=== PATIENT | male | born 1975 | race Caucasian/White ===

== ENCOUNTER 2019-11-18 09:46 | Inpatient (IN) | payer OTHER ==
[~2019-11-18 09:46] MED LIST: HEPARIN SODIUM 1,000 UN/ML (10ML VL) ONE; LIDOCAINE 1% INJ 10MG/ML (20 ML MDV) ONE
--- NOTE | 2019-11-18 10:05 | ED ---
Abdominal Pain HPI - General Chief Complaint: Abdominal Pain Stated Complaint: weakness/abd pain/bloating Time Seen by Provider: 11/18/19 09:53 Source: patient, RN notes reviewed Mode of arrival: wheelchair Limitations: no limitations - History of Present Illness Initial Comments: This a 44-year-old male presents emergency Department with complaints of abdominal pain, jaundice, weakness. Patient states that he noticed that he started having abdominal pain and bloating the last couple weeks noticed that he started having yellowing of his skin. He does admit that he was drinking at least a pint to 1/5 of alcohol daily for last several years. Patient states he has not had a drink of alcohol in 3 weeks. Patient states that he did not go through any withdrawal symptoms. Patient states that he came today because he was feeling worse. He denies any acetaminophen use. He states that he was told he may have Gilbert's disease based on his "gallbladder tests". Patient states he never had any evaluation for. He states that his liver enzymes were elevated at that time. Patient states she has generalized abdominal pain, distention and bloating. Patient denies any chest pain or shortness of breath. Patient denies any fevers or chills patient offers no other associated complaints. - Related Data Allergies Allergy/AdvReac Type Severity Reaction Status Date / Time No Known Allergies Allergy Verified 11/18/19 09:47 Review of Systems ROS Statement: Those systems with pertinent positive or pertinent negative responses have been documented in the HPI. ROS Other: All systems not noted in ROS Statement are negative. Past Medical History Past Medical History: Diabetes Mellitus Additional Past Medical History / Comment(s): possible Gilbert syndrome History of Any Multi-Drug Resistant Organisms: None Reported Past Surgical History: Adenoidectomy Past Psychological History: No Psychological Hx Reported Smoking Status: Never smoker Past Alcohol Use History: Abuse, Heavy Past Drug Use History: None Reported General Exam Limitations: no limitations General appearance: alert, in no apparent distress Head exam: Present: atraumatic, normocephalic, normal inspection Eye exam: Present: PERRL, EOMI, scleral icterus. Absent: normal appearance, conjunctival injection, periorbital swelling ENT exam: Present: mucous membranes moist. Absent: normal oropharynx (Icterus submandibular region) Neck exam: Present: normal inspection, full ROM. Absent: tenderness, meningismus, lymphadenopathy Respiratory exam: Present: normal lung sounds bilaterally. Absent: respiratory distress, wheezes, rales, rhonchi, stridor Cardiovascular Exam: Present: regular rate, normal rhythm, normal heart sounds. Absent: systolic murmur, diastolic murmur, rubs, gallop, clicks GI/Abdominal exam: Present: distended, tenderness, normal bowel sounds. Absent: soft, guarding, rebound, rigid Neurological exam: Present: alert, oriented X3, CN II-XII intact Skin exam: Present: warm, dry, intact, other (Icterus). Absent: normal color, rash Course Vital Signs 11/18/19 11/18/19 09:48 10:17 Temperature 97.9 F Pulse Rate 75 75 Respiratory 18 18 Rate Blood Pressure 105/69 122/68 O2 Sat by Pulse 100 100 Oximetry Medical Decision Making - Medical Decision Making 44-year-old male presented for abdominal pain, jaundice. Patient has metabolic encephalopathy, acute renal and liver failure most likely related to alcohol abuse, cirrhosis. Patient will be admitted for further evaluation by GI. Patient was given lactulose for his elevated ammonia, potassium replacement was ordered. - Lab Data Result diagrams: 11/18/19 10:04 11/18/19 10:04 Lab Results 11/18/19 11/18/19 11/18/19 Range/Units 10:04 10:04 10:04 WBC 29.9 H (3.8-10.6) k/uL RBC 3.64 L (4.30-5.90) m/uL Hgb 13.2 (13.0-17.5) gm/dL Hct 37.2 L (39.0-53.0) % MCV 102.1 H (80.0-100.0) fL MCH 36.3 H (25.0-35.0) pg MCHC 35.5 (31.0-37.0) g/dL RDW 14.5 (11.5-15.5) % Plt Count 174 (150-450) k/uL Neutrophils % 90 % Lymphocytes % 4 % Monocytes % 4 % Eosinophils % 1 % Basophils % 0 % Neutrophils # 27.0 H (1.3-7.7) k/uL Lymphocytes # 1.2 (1.0-4.8) k/uL Monocytes # 1.1 H (0-1.0) k/uL Eosinophils # 0.3 (0-0.7) k/uL Basophils # 0.1 (0-0.2) k/uL Macrocytosis Slight Sodium 125 L (137-145) mmol/L Potassium 2.8 L (3.5-5.1) mmol/L Chloride 89 L (98-107) mmol/L Carbon Dioxide 19 L (22-30) mmol/L Anion Gap 17 mmol/L BUN 82 H (9-20) mg/dL Creatinine 4.24 H (0.66-1.25) mg/dL Est GFR (CKD-EPI)AfAm 19 (>60 ml/min/1.73 sqM) Est GFR (CKD-EPI)NonAf 16 (>60 ml/min/1.73 sqM) Glucose 133 H (74-99) mg/dL Plasma Lactic Acid Joselo 1.9 (0.7-2.0) mmol/L Calcium 8.7 (8.4-10.2) mg/dL Total Bilirubin 40.3 H* (0.2-1.3) mg/dL GGT 226 H (15-73) U/L AST 304 H (17-59) U/L ALT 202 H (4-49) U/L Alkaline Phosphatase 249 H (38-126) U/L Ammonia 79 H (<30) umol/L Lactate Dehydrogenase 742 H (313-618) U/L Total Protein 7.4 (6.3-8.2) g/dL Albumin 3.0 L (3.5-5.0) g/dL Amylase 71 (30-110) U/L Lipase 481 H (23-300) U/L Serum Alcohol <10 mg/dL Critical Care Time Critical Care Time: Yes Total Critical Care Time: 35 Critical Care Time: Total 35 minutes of critical care time used initially evaluated the patient, reviewed past medical history, according of labs including CBC, CMP, hepatitis panel, GGT, LDH, pneumonia. Patient's found to be and metabolic suppository, acute liver and renal failure. Patient will be admitted for further evaluation by GI, treatment at this time. Case discussed with admitting physician. Disposition Clinical Impression: Acute liver failure, Acute renal failure, Hepatic encephalopathy, Hypokalemia, Jaundice Disposition: ADMITTED IP TO THIS [facility] Condition: Serious Referrals: None,Stated [Primary Care Provider] - 1-2 days Time of Disposition: 10:57
[2019-11-18 10:22] LABS: Basophils # (A) 0.1 k/uL (0-0.2); Basophils % (A) 0 %; Eosinophils # (A) 0.3 k/uL (0-0.7); Eosinophils % (A) 1 %; HCT 37.2 % (39.0-53.0); HGB 13.2 gm/dL (13.0-17.5); Lymphocytes # (A) 1.2 k/uL (1.0-4.8); Lymphocytes % (A) 4 %; MCH 36.3 pg (25.0-35.0); MCHC 35.5 g/dL (31.0-37.0); MCV 102.1 fL (80.0-100.0); Macrocytosis Slight; Mean Platelet Volume 9.2; Monocytes # (A) 1.1 k/uL (0-1.0); Monocytes % (A) 4 %; Neutrophils % (A) 90 %; Platelet Count 174 k/uL (150-450); RBC 3.64 m/uL (4.30-5.90); RDW 14.5 % (11.5-15.5); WBC 29.9 k/uL (3.8-10.6)
[2019-11-18 10:23] LABS: Lactic Acid, Venous 1.9 mmol/L (0.7-2.0)
[2019-11-18 10:35] LABS: ALT 202 U/L (4-49); AST 304 U/L (17-59); African American GFR (CKD) 19 (>60 ml/min/1.73 sqM); Alcohol <10 mg/dL; Alkaline Phosphatase 249 U/L (38-126); Amylase 71 U/L (30-110); Anion Gap 17 mmol/L; Blood Urea Nitrogen 82 mg/dL (9-20); Calcium 8.7 mg/dL (8.4-10.2); Carbon Dioxide 19 mmol/L (22-30); Chloride 89 mmol/L (98-107); GGT 226 U/L (15-73); Glucose 133 mg/dL (74-99); LDH 742 U/L (313-618); Non-African American GFR(CKD) 16 (>60 ml/min/1.73 sqM); Potassium 2.8 mmol/L (3.5-5.1); Sodium 125 mmol/L (137-145); Total Protein 7.4 g/dL (6.3-8.2)
[2019-11-18 10:43] LABS: Total Bilirubin 40.3 mg/dL (0.2-1.3)
[2019-11-18] MEDS ORDERED: LACTULOSE 20 GM/30 ML CUP PO ONE (10:51)
[2019-11-18] MEDS ORDERED: POTASSIUM CHLORIDE ER 20 MEQ TAB.ER PO STA (10:51)
[2019-11-18 11:10] LABS: INR 2.1 (<1.2); Partial Thromboplastin Time 38.2 sec (22.0-30.0); Prothrombin Time 20.6 sec (9.0-12.0)
[2019-11-18 11:10] LABS: Hepatitis A Antibody IgM NEGATIVE
--- NOTE | 2019-11-18 11:27 | US ---
EXAMINATION TYPE: US abdomen limited DATE OF EXAM: 11/18/2019 COMPARISON: NONE CLINICAL HISTORY: pain, liver failure. Jaundice, ETOH EXAM MEASUREMENTS: Liver Length: 21.3 cm Gallbladder Wall: 0.6 cm CBD: 0.5 cm Right Kidney: 13.5 x 6.1 x 6.8 cm Pancreas: Obscured by bowel gas Liver: Coarse, heterogeneous echotexture. Nodular contour, enlarged Gallbladder: Wall thickened with pericholecystic fluid, tiny echogenic foci visualized, sludge visua lized Evidence for sonographic Obrien's sign: No CBD: wnl as visualized, distal portion obscured by bowel gas Right Kidney: No hydronephrosis or masses seen The pancreas is not visualized. The liver is enlarged and has a somewhat nodular contour. There is no biliary dilatation. There is evidence of ascites. The gallbladder is free of stones the gallbladder wall is thickened measuring 6 mm. The distal common hepatic duct measures 5 mm. The right kidney is unremarkable. IMPRESSION: 1. Hepatomegaly and nodularity to the liver may reflect early cirrhosis. 2. Thickening of the gallbladder wall is not a reliable sign in the face of ascites. Please correlate clinically to exclude acalculous cholecystitis. 3. Ascites.
[2019-11-18] MEDS ORDERED: IBUPROFEN 400 MG TAB PO PRN (12:49)
[2019-11-18] MEDS ORDERED: PHYTONADIONE 10 MG in SODIUM CHLORIDE 0.9% 50 ML IVPB STA (14:50)
[2019-11-18] MEDS ORDERED: POTASSIUM CHLORIDE 10 MEQ in WATER FOR INJECTION 1 100ML.BAG IVPB STA (14:52)
[2019-11-18] MEDS ORDERED: NALOXONE 0.4 MG/ML 1 ML VIAL IV PRN (14:53)
--- NOTE | 2019-11-18 14:53 | P.HPIM ---
History of Present Illness H&P Date: 11/18/19 Chief Complaint: abdominal pain 44-year-old male presents emergency Department with complaints of jaundice, weakness. In addition he has been having generalized abdominal pain, distention and bloating. Symptoms ongoing for the past few weeks. He does admit that he was drinking at least a pint to 1/5 of alcohol daily for last 2 years. Last drink was 3 weeks ago. Patient states that he did not go through any withdrawal symptoms. No acetaminophen use. He states that years ago he was told he may have Gilbert's disease based on his "gallbladder tests". He states that his liver enzymes were elevated at that time. Patient denies any chest pain or shortness of breath. Patient denies any fevers or chills patient offers no other associated complaints. Laboratory evaluation in the emergency department revealed WBC count 30,000, INR was 2.1, sodium 125, potassium 2.8, bicarbonate 19, BUN 82, creatinine 4.2, AST 304, AST 202, ammonia 79. Patient was admitted for further evaluation by GI and further diagnostic studies. Review of Systems Complete review of system performed, pertinent positives per HPI, otherwise negative Past Medical History Past Medical History: Diabetes Mellitus Additional Past Medical History / Comment(s): possible Gilbert syndrome History of Any Multi-Drug Resistant Organisms: None Reported Past Surgical History: Adenoidectomy Past Psychological History: No Psychological Hx Reported Smoking Status: Never smoker Past Alcohol Use History: Abuse, Heavy Past Drug Use History: None Reported - Past Family History Mother Family Medical History: Cancer Father Family Medical History: Diabetes Mellitus Medications and Allergies Home Medications Medication Instructions Recorded Confirmed Type Cetirizine HCl [Zyrtec] 10 mg PO DAILY 11/18/19 11/18/19 History Ibuprofen [Advil] 400 mg PO Q6H PRN 11/18/19 11/18/19 History metFORMIN HCL [Glucophage] 500 mg PO BID 11/18/19 11/18/19 History Allergies Allergy/AdvReac Type Severity Reaction Status Date / Time No Known Allergies Allergy Verified 11/18/19 10:59 Physical Exam Vitals: Vital Signs Temp Pulse Resp BP Pulse Ox 11/18/19 11:22 84 18 117/70 100 11/18/19 10:17 75 18 122/68 100 11/18/19 09:48 97.9 F 75 18 105/69 100 Intake and Output 05/08/20 05/09/20 05/09/20 22:59 06:59 14:59 Other: Weight 81.647 kg Constitutional: No acute distress, conversant, pleasant Eyes: icteric sclerae, moist conjunctiva, no lid-lag, PERRLA, ENMT: Oropharynx clear, no erythema, exudates Neck: Supple, FROM, no masses, or JVD, No carotid bruits, No thyromegaly Lungs: Clear to auscultation, Clear to percussion, Normal respiratory effort, no accessory muscle use Cardiovascular: Heart regular in rate and rhythm, No murmurs, gallops, or rubs, No peripheral edema Abdominal: Distended, Soft, Nontender, no guarding, rebound or rigidity, Normoactive bowel sounds, mild hepatomegaly, No splenomegaly, No palpable mass Skin: Yellow skin. Normal temperature, tone, texture, turgor, no induration, No subcutaneous nodules, No rash, lesions, No ulcers Extremities: No digital cyanosis, No clubbing, Pedal pulses intact and symmetrical, Radial pulses intact and symmetrical, No calf tenderness Psychiatric: Alert and oriented to person, place and time, appropriate affect, intact judgement Neuro: Muscles Strength 5/5 in all 4 extremities, Sensation to light touch g rossly present throughout, Cranial nerves II-XII grossly intact, no focal sensory deficits Results CBC & Chem 7: 11/18/19 10:04 11/18/19 10:04 Labs: Abnormal Lab Results - Last 24 Hours (Table) 11/18/19 11/18/19 11/18/19 Range/Units 10:04 10:04 10:04 WBC 29.9 H (3.8-10.6) k/uL RBC 3.64 L (4.30-5.90) m/uL Hct 37.2 L (39.0-53.0) % MCV 102.1 H (80.0-100.0) fL MCH 36.3 H (25.0-35.0) pg Neutrophils # 27.0 H (1.3-7.7) k/uL Monocytes # 1.1 H (0-1.0) k/uL PT 20.6 H (9.0-12.0) sec INR 2.1 H (<1.2) APTT 38.2 H (22.0-30.0) sec Sodium 125 L (137-145) mmol/L Potassium 2.8 L (3.5-5.1) mmol/L Chloride 89 L (98-107) mmol/L Carbon Dioxide 19 L (22-30) mmol/L BUN 82 H (9-20) mg/dL Creatinine 4.24 H (0.66-1.25) mg/dL Glucose 133 H (74-99) mg/dL Total Bilirubin 40.3 H* (0.2-1.3) mg/dL GGT 226 H (15-73) U/L AST 304 H (17-59) U/L ALT 202 H (4-49) U/L Alkaline Phosphatase 249 H (38-126) U/L Ammonia (<30) umol/L Lactate Dehydrogenase 742 H (313-618) U/L Albumin 3.0 L (3.5-5.0) g/dL Lipase 481 H (23-300) U/L 11/18/19 Range/Units 10:04 WBC (3.8-10.6) k/uL RBC (4.30-5.90) m/uL Hct (39.0-53.0) % MCV (80.0-100.0) fL MCH (25.0-35.0) pg Neutrophils # (1.3-7.7) k/uL Monocytes # (0-1.0) k/uL PT (9.0-12.0) sec INR (<1.2) APTT (22.0-30.0) sec Sodium (137-145) mmol/L Potassium (3.5-5.1) mmol/L Chloride (98-107) mmol/L Carbon Dioxide (22-30) mmol/L BUN (9-20) mg/dL Creatinine (0.66-1.25) mg/dL Glucose (74-99) mg/dL Total Bilirubin (0.2-1.3) mg/dL GGT (15-73) U/L AST (17-59) U/L ALT (4-49) U/L Alkaline Phosphatase (38-126) U/L Ammonia 79 H (<30) umol/L Lactate Dehydrogenase (313-618) U/L Albumin (3.5-5.0) g/dL Lipase (23-300) U/L Assessment and Plan Plan: Jaundice Elevated LFTs Cirrhosis likely secondary to alcohol abuse EtOH abuse Chronic back pain Hypokalemia Hyponatremia Metabolic acidosis Acute renal failure Patient likely dehydrated, started IV fluids Replace K Mg sulfate IV Check plasma and urine osmolalities Check urine sodium Replace potassium Check electrolytes and creatinine tonight Discussed with GI--no steroids It is not safe to give patient anything for pain at this point
[2019-11-18] MEDS: LACTULOSE 20 GM/30 ML CUP PO SCH ×2 (15:59→22:35)
[2019-11-18] MEDS: SODIUM CHLORIDE 0.9% 1,000 ML IV SCH (16:09)
[2019-11-18] MEDS: MAGNESIUM SULFATE-D5W PMX 1 GM in DEXTROSE/WATER 1 100ML.BAG IVPB SCH ×2 (16:48→17:56)
[2019-11-18 17:17] LABS: Glucose,Whole Blood 127 mg/dL (75-99)
[2019-11-18 17:46] LABS: Amorphous Sediment,Urine Rare /hpf; Appearance,Urine Cloudy (Clear); Bacteria,Urine Occasional /hpf; Bilirubin,Urine 4+ (Negative); Blood,Urine Negative (Negative); Color,Urine Dark Brown; Glucose,Urine (UA) Negative (Negative); Ketones,Urine Negative (Negative); Leukocyte Esterase,Urine Negative (Negative); Mucus,Urine Rare /hpf; Nitrite,Urine Negative (Negative); PH, Urine 5.5 (5.0-8.0); Protein,Urine Trace (Negative); RBC,Urine <1 /hpf (0-5); Specific Gravity,Urine 1.013 (1.001-1.035); Squamous Epithelial Cell,Urine 1 /hpf (0-4); WBC,Urine 4 /hpf (0-5)
[2019-11-18 18:29] LABS: Hepatitis B Core IgM Non-Reactive (Non-Reactive); Hepatitis B Surface Antigen Non-Reactive (Non-Reactive); Hepatitis C IgG Antibody Non-Reactive (Non-Reactive)
[2019-11-18 20:04] LABS: HCT 33.1 % (39.0-53.0); HGB 11.8 gm/dL (13.0-17.5); MCH 36.7 pg (25.0-35.0); MCHC 35.6 g/dL (31.0-37.0); Macrocytosis Slight; Mean Platelet Volume 9.3; Platelet Count 168 k/uL (150-450); RBC 3.21 m/uL (4.30-5.90); RDW 14.5 % (11.5-15.5)
[2019-11-18 20:07] LABS: Glucose,Whole Blood 135 mg/dL (75-99)
[2019-11-18 20:30] LABS: Albumin 2.9 g/dL (3.5-5.0); Calcium 8.7 mg/dL (8.4-10.2); Phosphorus 5.5 mg/dL (2.5-4.5)
[2019-11-18 20:48] LABS: Total Bilirubin 41.2 mg/dL (0.2-1.3); Total Protein 6.9 g/dL (6.3-8.2)
[2019-11-18] MEDS: POTASSIUM CHLORIDE ER 20 MEQ TAB.ER PO SCH ×2 (21:28→22:35)
[2019-11-19] MEDS: SODIUM CHLORIDE 0.9% 1,000 ML IV SCH ×2 (06:12→17:09)
[2019-11-19 06:32] LABS: Albumin 2.5 g/dL (3.5-5.0); Calcium 8.1 mg/dL (8.4-10.2); Magnesium 2.7 mg/dL (1.6-2.3); Phosphorus 5.2 mg/dL (2.5-4.5); Total Protein 6.2 g/dL (6.3-8.2)
[2019-11-19 06:34] LABS: Basophils # (A) 0.1 k/uL (0-0.2); Basophils % (A) 0 %; Eosinophils # (A) 0.1 k/uL (0-0.7); Eosinophils % (A) 1 %; HCT 31.9 % (39.0-53.0); Lymphocytes % (A) 4 %; MCH 35.9 pg (25.0-35.0); MCHC 34.5 g/dL (31.0-37.0); Macrocytosis Slight; Mean Platelet Volume 10.4; Monocytes # (A) 0.7 k/uL (0-1.0); Monocytes % (A) 3 %; Neutrophils # (A) 21.9 k/uL (1.3-7.7); Neutrophils % (A) 91 %; Platelet Count 113 k/uL (150-450); RBC 3.07 m/uL (4.30-5.90)
[2019-11-19 06:41] LABS: Total Bilirubin 39.4 mg/dL (0.2-1.3)
[2019-11-19 06:54] LABS: Glucose,Whole Blood 118 mg/dL (75-99)
[2019-11-19] MEDS: LACTULOSE 20 GM/30 ML CUP PO SCH ×3 (08:42→22:24)
[2019-11-19] MEDS ORDERED: POTASSIUM CHLORIDE ER 20 MEQ TAB.ER PO STA (10:17)
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
--- NOTE | 2019-11-19 11:15 | US ---
EXAMINATION TYPE: US kidneys/renal and bladder DATE OF EXAM: 11/19/2019 COMPARISON: Previous abdominal ultrasound dated 11/18/2019. CLINICAL HISTORY: pete. EXAM MEASUREMENTS: Right Kidney: 11.7 x 5.9 x 5.9 cm Left Kidney: 11.8 x 6.2 x 5.0 cm Right Kidney: No hydronephrosis or masses seen Left Kidney: No hydronephrosis or masses seen Bladder: Not distended, patient has dowd IMPRESSION: NO EVIDENCE FOR HYDRONEPHROSIS AT THIS TIME.
[2019-11-19 11:32] LABS: Glucose,Whole Blood 110 mg/dL (75-99)
[2019-11-19 11:50] LABS: Prothrombin Time 19.7 sec (9.0-12.0)
[2019-11-19] MEDS ORDERED: PHYTONADIONE 10 MG in SODIUM CHLORIDE 0.9% 50 ML IVPB STA (13:02)
--- NOTE | 2019-11-19 17:05 | P.PN ---
Subjective Progress Note Date: 11/19/19 Principal diagnosis: Jaundice Patient is feeling okay. Still the same. His blood pressure was noted to be low 70/40. He is asymptomatic, no dizziness. He has some nausea but no vomiting. He is still feeling weak though. According to nursing staff is not making any urine. No fevers or chills noted. Objective - Vital Signs Vital signs: Vital Signs Temp 97.5 F L 11/19/19 13:00 Pulse 84 11/19/19 15:52 Resp 16 11/19/19 15:52 BP 75/42 11/19/19 13:00 Pulse Ox 98 11/19/19 13:00 Intake & Output 11/18/19 11/19/19 11/19/19 18:59 06:59 18:59 Intake Total 1300 590 540 Output Total 300 10 10 Balance 1000 580 530 Weight 81.647 kg Intake: Intake, IV Titration 400 Amount Magnesium Sulfate-D5w Pmx 100 1 gm In Dextrose/Water 1 100ml.bag @ 100 mls/hr IVPB Q1H JAILENE Rx#: [id number] Phytonadione 10 mg In 50 Sodium Chloride 0.9% 50 ml @ 100 mls/hr IVPB ONCE STA Rx#:[id number] Potassium Chloride 10 meq 100 In Water For Injection 1 100ml.bag @ 100 mls/hr IVPB ONCE STA Rx#: [id number] Sodium Chloride 0.9% 1, 150 000 ml @ 100 mls/hr IV . Q10H JAILENE Rx#:[id number] Oral 900 590 540 Output: Urine 300 10 10 Other: Voiding Method Toilet Toilet Indwelling Catheter Urinal Urinal # Voids 0 0 # Bowel Movements 1 2 - Exam Constitutional: No acute distress, conversant, pleasant Eyes: icteric sclerae, moist conjunctiva, no lid-lag, PERRLA, ENMT: Oropharynx clear, no erythema, exudates Neck: Supple, FROM, no masses, or JVD, No carotid bruits, No thyromegaly Lungs: Clear to auscultation, Clear to percussion, Normal respiratory effort, no accessory muscle use Cardiovascular: Heart regular in rate and rhythm, No murmurs, gallops, or rubs, No peripheral edema Abdominal: Distended, Soft, Nontender, no guarding, rebound or rigidity, Normoactive bowel sounds, mild hepatomegaly, No splenomegaly, No palpable mass Skin: Yellow skin. Normal temperature, tone, texture, turgor, no induration, No subcutaneous nodules, No rash, lesions, No ulcers Extremities: No digital cyanosis, No clubbing, Pedal pulses intact and symmetrical, Radial pulses intact and symmetrical, No calf tenderness Psychiatric: Alert and oriented to person, place and time, appropriate affect, intact judgement Neuro: Muscles Strength 5/5 in all 4 extremities, Sensation to light touch ponce ssly present throughout, Cranial nerves II-XII grossly intact, no focal sensory deficits - Labs CBC & Chem 7: 11/19/19 05:36 11/19/19 05:36 Labs: Abnormal Lab Results - Last 24 Hours (Table) 11/18/19 11/18/19 11/18/19 Range/Units 17:15 17:20 19:47 WBC (3.8-10.6) k/uL RBC (4.30-5.90) m/uL Hgb (13.0-17.5) gm/dL Hct (39.0-53.0) % MCV (80.0-100.0) fL MCH (25.0-35.0) pg Plt Count (150-450) k/uL Neutrophils # (1.3-7.7) k/uL PT (9.0-12.0) sec INR (<1.2) Sodium 125 L (137-145) mmol/L Potassium 3.0 L (3.5-5.1) mmol/L Chloride 88 L (98-107) mmol/L Carbon Dioxide 20 L (22-30) mmol/L BUN 87 H (9-20) mg/dL Creatinine 4.51 H (0.66-1.25) mg/dL Glucose 123 H (74-99) mg/dL POC Glucose (mg/dL) 127 H (75-99) mg/dL Calcium (8.4-10.2) mg/dL Phosphorus 5.5 H (2.5-4.5) mg/dL Magnesium 3.0 H (1.6-2.3) mg/dL Total Bilirubin 41.2 H* (0.2-1.3) mg/dL AST 292 H (17-59) U/L ALT 179 H (4-49) U/L Alkaline Phosphatase 234 H (38-126) U/L Total Protein (6.3-8.2) g/dL Albumin 2.9 L (3.5-5.0) g/dL Urine Protein Trace H (Negative) Urine Bilirubin 4+ H (Negative) Amorphous Sediment Rare H (None) /hpf Urine Bacteria Occasional H (None) /hpf Urine Mucus Rare H (None) /hpf 11/18/19 11/18/19 11/19/19 Range/Units 19:47 20:06 05:36 WBC 31.0 H 24.0 H (3.8-10.6) k/uL RBC 3.21 L 3.07 L (4.30-5.90) m/uL Hgb 11.8 L 11.0 L (13.0-17.5) gm/dL Hct 33.1 L 31.9 L (39.0-53.0) % MCV 103.0 H 104.0 H (80.0-100.0) fL MCH 36.7 H 35.9 H (25.0-35.0) pg Plt Count 113 L (150-450) k/uL Neutrophils # 21.9 H (1.3-7.7) k/uL PT (9.0-12.0) sec INR (<1.2) Sodium (137-145) mmol/L Potassium (3.5-5.1) mmol/L Chloride (98-107) mmol/L Carbon Dioxide (22-30) mmol/L BUN (9-20) mg/dL Creatinine (0.66-1.25) mg/dL Glucose (74-99) mg/dL POC Glucose (mg/dL) 135 H (75-99) mg/dL Calcium (8.4-10.2) mg/dL Phosphorus (2.5-4.5) mg/dL Magnesium (1.6-2.3) mg/dL Total Bilirubin (0.2-1.3) mg/dL AST (17-59) U/L ALT (4-49) U/L Alkaline Phosphatase (38-126) U/L Total Protein (6.3-8.2) g/dL Albumin (3.5-5.0) g/dL Urine Protein (Negative) Urine Bilirubin (Negative) Amorphous Sediment (None) /hpf Urine Bacteria (None) /hpf Urine Mucus (None) /hpf 11/19/19 11/19/19 11/19/19 Range/Units 05:36 06:52 10:44 WBC (3.8-10.6) k/uL RBC (4.30-5.90) m/uL Hgb (13.0-17.5) gm/dL Hct (39.0-53.0) % MCV (80.0-100.0) fL MCH (25.0-35.0) pg Plt Count (150-450) k/uL Neutrophils # (1.3-7.7) k/uL PT 19.7 H (9.0-12.0) sec INR 2.0 H (<1.2) Sodium 124 L (137-145) mmol/L Potassium 3.0 L (3.5-5.1) mmol/L Chloride 89 L (98-107) mmol/L Carbon Dioxide 21 L (22-30) mmol/L BUN 91 H (9-20) mg/dL Creatinine 5.03 H (0.66-1.25) mg/dL Glucose 123 H (74-99) mg/dL POC Glucose (mg/dL) 118 H (75-99) mg/dL Calcium 8.1 L (8.4-10.2) mg/dL Phosphorus 5.2 H (2.5-4.5) mg/dL Magnesium 2.7 H (1.6-2.3) mg/dL Total Bilirubin 39.4 H* (0.2-1.3) mg/dL AST 248 H (17-59) U/L ALT 173 H (4-49) U/L Alkaline Phosphatase 189 H (38-126) U/L Total Protein 6.2 L (6.3-8.2) g/dL Albumin 2.5 L (3.5-5.0) g/dL Urine Protein (Negative) Urine Bilirubin (Negative) Amorphous Sediment (None) /hpf Urine Bacteria (None) /hpf Urine Mucus (None) /hpf 11/19/19 Range/Units 11:31 WBC (3.8-10.6) k/uL RBC (4.30-5.90) m/uL Hgb (13.0-17.5) gm/dL Hct (39.0-53.0) % MCV (80.0-100.0) fL MCH (25.0-35.0) pg Plt Count (150-450) k/uL Neutrophils # (1.3-7.7) k/uL PT (9.0-12.0) sec INR (<1.2) Sodium (137-145) mmol/L Potassium (3.5-5.1) mmol/L Chloride (98-107) mmol/L Carbon Dioxide (22-30) mmol/L BUN (9-20) mg/dL Creatinine (0.66-1.25) mg/dL Glucose (74-99) mg/dL POC Glucose (mg/dL) 110 H (75-99) mg/dL Calcium (8.4-10.2) mg/dL Phosphorus (2.5-4.5) mg/dL Magnesium (1.6-2.3) mg/dL Total Bilirubin (0.2-1.3) mg/dL AST (17-59) U/L ALT (4-49) U/L Alkaline Phosphatase (38-126) U/L Total Protein (6.3-8.2) g/dL Albumin (3.5-5.0) g/dL Urine Protein (Negative) Urine Bilirubin (Negative) Amorphous Sediment (None) /hpf Urine Bacteria (None) /hpf Urine Mucus (None) /hpf Assessment and Plan Plan: Jaundice Elevated LFTs Cirrhosis likely secondary to alcohol abuse EtOH abuse Hypotension Chronic back pain Hypokalemia Hyponatremia Metabolic acidosis Acute renal failure, oliguric Hepatorenal syndrome Continue IV fluids Symptomatic treatment with Zofran Started on midodrine for low blood pressure Replace K Urine sodium low consistent with HRS Recheck kristian in am Discussed with GI--no steroids
[2019-11-19] MEDS: MIDODRINE 5 MG TAB PO SCH (17:09)
[2019-11-19 17:19] LABS: Glucose,Whole Blood 146 mg/dL (75-99)
--- NOTE | 2019-11-19 17:46 | P.CONS ---
History of Present Illness - Reason for Consult Consult date: 11/18/19 Elevated liver enzymes, alcoholic hepatitis Requesting physician: Darcy Moyer - Chief Complaint Jaundice, weakness - History of Present Illness 44-year-old male with a medical history significant for alcohol abuse who presented to the hospital for a constellation of symptoms including jaundice, weakness and some lower abdominal pain. The patient reports abdominal pain in association with swelling and distention. This is been going on for the past 4 days. He reports the pain as dull in nature. He did have some nausea and vomiting approximately 5 days ago however this resolved. The patient denies any change in bowel habits and is passing flatus. The patient reports noting yellowness of the skin over the past 2 weeks. The patient reports he feels it i s actually getting better. The patient has been drinking heavy amounts of alcohol daily for the past 2 years and only stopped drinking 3 weeks ago. Prior to these 2 years he reports only occasionally drinking. He also notes darkening of his urine and decreased urine output. He denies any pruritus. The patient has a questionable history of Gilbert's syndrome in the past. Patient's laboratory evaluation on presentation significant for a WBC 29.9, hemoglobin 13.2, platelet count 174,000, total bilirubin 40.3, alkaline phosphatase 249, AST 304 and ALT 202 with an INR of 2.1. Ultrasound showed hepatomegaly and nodularity of the liver. Review of Systems REVIEW OF SYSTEMS: CONSTITUTIONAL: Denies any fevers, chills, weight change or fatigue. CARDIOVASCULAR: Denies any chest pain, palpitations high or low blood pressures, blood pressures have been low while in the hospital. RESPIRATORY: Denies any shortness of breath, hemoptysis or cough. GENITOURINARY: No dysuria or hematuria, however her urine has been dark with decreased output. MUSCULOSKELETAL: No weakness reported. SKIN: Denies any new rashes or lesions, or pallor but significant jaundice. PSYCHIATRIC: Denies any depression or anxiety, history of alcohol abuse. NEUROLOGY: Denies headache, denies any new focal deficits. EARS/NOSE/THROAT: No recent hearing change, congestion, nasal discharge or sore throat. EYES: No pain in eyes, discharge or change in vision, but yellowing of eyes noted. GASTROINTESTINAL: As per HPI. Past Medical History Past Medical History: Diabetes Mellitus Additional Past Medical History / Comment(s): possible Gilbert syndrome History of Any Multi-Drug Resistant Organisms: None Reported Past Surgical History: Adenoidectomy Past Psychological History: No Psychological Hx Reported Smoking Status: Never smoker Past Alcohol Use History: Abuse, Heavy Past Drug Use History: None Reported - Past Family History Mother Family Medical History: Cancer Father Family Medical History: Diabetes Mellitus Medications and Allergies Home Medications Medication Instructions Recorded Confirmed Type Cetirizine HCl [Zyrtec] 10 mg PO DAILY 11/18/19 11/18/19 History Ibuprofen [Advil] 400 mg PO Q6H PRN 11/18/19 11/18/19 History metFORMIN HCL [Glucophage] 500 mg PO BID 11/18/19 11/18/19 History Allergies Allergy/AdvReac Type Severity Reaction Status Date / Time No Known Allergies Allergy Verified 11/18/19 10:59 Physical Exam Vitals: Vital Signs Temp Pulse Pulse Resp BP BP Pulse Ox 11/18/19 13:21 84 17 11/18/19 13:12 98.4 F 84 17 119/77 99 11/18/19 13:11 80 16 121/78 99 11/18/19 12:02 98.4 F 84 17 119/77 99 11/18/19 11:22 84 18 117/70 100 11/18/19 10:17 75 18 122/68 100 11/18/19 09:48 97.9 F 75 18 105/69 100 Intake and Output 11/17/19 11/18/19 11/18/19 22:59 06:59 14:59 Intake Total 120 Balance 120 Intake: Oral 120 Other: Voiding Method Toilet Urinal Weight 81.647 kg On physical examination, patient appears comfortable in no apparent distress. HEAD: Normocephalic, atraumatic. EYES: Scleral icterus. No conjunctival injection. MOUTH: No lesions, tongue midline. NECK: Trachea midline, no gross abnormalities. CHEST: Clear to auscultation with no wheezing or rhonchi appreciated. HEART: Regular rate and rhythm. ABDOMEN: Soft, distended with positive fluid wave. Bowel sounds are positive. No organomegaly. No guarding or rigidity. EXTREMITIES: No pedal edema. SKIN: No rashes, significant jaundice. NEUROLOGIC: Alert and oriented x3, no asterixis noted. No focal deficits. Results CBC & Chem 7: 11/19/19 05:36 11/19/19 05:36 Labs: Abnormal Lab Results - Last 24 Hours (Table) 11/18/19 11/18/19 11/18/19 Range/Units 10:04 10:04 10:04 WBC 29.9 H (3.8-10.6) k/uL RBC 3.64 L (4.30-5.90) m/uL Hct 37.2 L (39.0-53.0) % MCV 102.1 H (80.0-100.0) fL MCH 36.3 H (25.0-35.0) pg Neutrophils # 27.0 H (1.3-7.7) k/uL Monocytes # 1.1 H (0-1.0) k/uL PT 20.6 H (9.0-12.0) sec INR 2.1 H (<1.2) APTT 38.2 H (22.0-30.0) sec Sodium 125 L (137-145) mmol/L Potassium 2.8 L (3.5-5.1) mmol/L Chloride 89 L (98-107) mmol/L Carbon Dioxide 19 L (22-30) mmol/L BUN 82 H (9-20) mg/dL Creatinine 4.24 H (0.66-1.25) mg/dL Glucose 133 H (74-99) mg/dL Total Bilirubin 40.3 H* (0.2-1.3) mg/dL GGT 226 H (15-73) U/L AST 304 H (17-59) U/L ALT 202 H (4-49) U/L Alkaline Phosphatase 249 H (38-126) U/L Ammonia (<30) umol/L Lactate Dehydrogenase 742 H (313-618) U/L Albumin 3.0 L (3.5-5.0) g/dL Lipase 481 H (23-300) U/L 11/18/19 Range/Units 10:04 WBC (3.8-10.6) k/uL RBC (4.30-5.90) m/uL Hct (39.0-53.0) % MCV (80.0-100.0) fL MCH (25.0-35.0) pg Neutrophils # (1.3-7.7) k/uL Monocytes # (0-1.0) k/uL PT (9.0-12.0) sec INR (<1.2) APTT (22.0-30.0) sec Sodium (137-145) mmol/L Potassium (3.5-5.1) mmol/L Chloride (98-107) mmol/L Carbon Dioxide (22-30) mmol/L BUN (9-20) mg/dL Creatinine (0.66-1.25) mg/dL Glucose (74-99) mg/dL Total Bilirubin (0.2-1.3) mg/dL GGT (15-73) U/L AST (17-59) U/L ALT (4-49) U/L Alkaline Phosphatase (38-126) U/L Ammonia 79 H (<30) umol/L Lactate Dehydrogenase (313-618) U/L Albumin (3.5-5.0) g/dL Lipase (23-300) U/L US - abdomen: report reviewed ( Ultrasound showed hepatomegaly and nodularity of the liver.) Assessment and Plan (1) Alcoholic hepatitis with ascites Narrative/Plan: 44-year-old male with significant alcohol use over the past 2 years consisting of large amounts of daily liquor presenting to 2 weakness, abdominal discomfort and jaundice. Patient found to have markedly elevated liver enzymes on presentation with a total bilirubin 40.3, alkaline phosphatase 249, AST 304 and ALT 202 with INR elevated at 2.1 yesterday and 2 today after being given vitamin K. Ultrasound showed a cirrhotic appearing liver with hepatomegaly and nodularity as well as a ascites. Patient has a questionable history of Gilbert syndrome in the past, however current presentation is consistent with severe acute alcoholic hepatitis. Current Visit: Yes Status: Acute Code(s): K70.11 - ALCOHOLIC HEPATITIS WITH ASCITES SNOMED Code(s): 8222460725558971 (2) Acute renal failure Current Visit: Yes Status: Acute Code(s): N17.9 - ACUTE KIDNEY FAILURE, UNSPECIFIED SNOMED Code(s): 92947017 (3) Jaundice Current Visit: Yes Status: Acute Code(s): R17 - UNSPECIFIED JAUNDICE SNOMED Code(s): 77548891 Plan: Supportive care Continue to monitor CBC, CMP, INR Continue to monitor for signs of encephalopathy Continue lactulose 3 times a day Nephrology consultation seen the patient, appreciate the recommendations Solu-Medrol 40 mg daily Patient not a candidate for transfer to a tertiary center for liver transplant evaluation of active alcohol use Alcohol abstinence Monitor for signs or symptoms of alcohol withdrawal Midodrine, albumin and octreotide added for suspected hepatorenal syndrome Thank you for allowing us to participate in the care of the patient we will continue to follow
--- NOTE | 2019-11-19 17:49 | P.PN ---
Subjective Progress Note Date: 11/19/19 Principal diagnosis: Acute alcoholic hepatitis, elevated liver enzymes Patient seen lying in bed today in stable condition. No acute complaints. He has been urinating less. Objective - Vital Signs Vital signs: Vital Signs Temp 97.5 F L 11/19/19 13:00 Pulse 84 11/19/19 15:52 Resp 16 11/19/19 15:52 BP 75/42 11/19/19 13:00 Pulse Ox 98 11/19/19 13:00 Intake & Output 11/18/19 11/19/19 11/19/19 18:59 06:59 18:59 Intake Total 1300 590 540 Output Total 300 10 10 Balance 1000 580 530 Weight 81.647 kg Intake: Intake, IV Titration 400 Amount Magnesium Sulfate-D5w Pmx 100 1 gm In Dextrose/Water 1 100ml.bag @ 100 mls/hr IVPB Q1H JAILENE Rx#: [id number] Phytonadione 10 mg In 50 Sodium Chloride 0.9% 50 ml @ 100 mls/hr IVPB ONCE STA Rx#:[id number] Potassium Chloride 10 meq 100 In Water For Injection 1 100ml.bag @ 100 mls/hr IVPB ONCE STA Rx#: [id number] Sodium Chloride 0.9% 1, 150 000 ml @ 100 mls/hr IV . Q10H JAILENE Rx#:[id number] Oral 900 590 540 Output: Urine 300 10 10 Other: Voiding Method Toilet Toilet Indwelling Catheter Urinal Urinal # Voids 0 0 # Bowel Movements 1 2 - Exam On physical examination, patient appears comfortable in no apparent distress. HEAD: Normocephalic, atraumatic. EYES: Scleral icterus. No conjunctival injection. MOUTH: No lesions, tongue midline. NECK: Trachea midline, no gross abnormalities. ABDOMEN: Soft, distended with positive fluid wave. Bowel sounds are positive. No organomegaly. No guarding or rigidity. EXTREMITIES: No pedal edema. SKIN: No rashes, jaundice. NEUROLOGIC: Alert and oriented x3, no asterixis noted. No focal deficits. - Labs CBC & Chem 7: 11/19/19 05:36 11/19/19 05:36 Labs: Abnormal Lab Results - Last 24 Hours (Table) 11/18/19 11/18/19 11/18/19 Range/Units 17:20 19:47 19:47 WBC 31.0 H (3.8-10.6) k/uL RBC 3.21 L (4.30-5.90) m/uL Hgb 11.8 L (13.0-17.5) gm/dL Hct 33.1 L (39.0-53.0) % MCV 103.0 H (80.0-100.0) fL MCH 36.7 H (25.0-35.0) pg Plt Count (150-450) k/uL Neutrophils # (1.3-7.7) k/uL PT (9.0-12.0) sec INR (<1.2) Sodium 125 L (137-145) mmol/L Potassium 3.0 L (3.5-5.1) mmol/L Chloride 88 L (98-107) mmol/L Carbon Dioxide 20 L (22-30) mmol/L BUN 87 H (9-20) mg/dL Creatinine 4.51 H (0.66-1.25) mg/dL Glucose 123 H (74-99) mg/dL POC Glucose (mg/dL) (75-99) mg/dL Calcium (8.4-10.2) mg/dL Phosphorus 5.5 H (2.5-4.5) mg/dL Magnesium 3.0 H (1.6-2.3) mg/dL Total Bilirubin 41.2 H* (0.2-1.3) mg/dL AST 292 H (17-59) U/L ALT 179 H (4-49) U/L Alkaline Phosphatase 234 H (38-126) U/L Total Protein (6.3-8.2) g/dL Albumin 2.9 L (3.5-5.0) g/dL Urine Protein Trace H (Negative) Urine Bilirubin 4+ H (Negative) Amorphous Sediment Rare H (None) /hpf Urine Bacteria Occasional H (None) /hpf Urine Mucus Rare H (None) /hpf 11/18/19 11/19/19 11/19/19 Range/Units 20:06 05:36 05:36 WBC 24.0 H (3.8-10.6) k/uL RBC 3.07 L (4.30-5.90) m/uL Hgb 11.0 L (13.0-17.5) gm/dL Hct 31.9 L (39.0-53.0) % MCV 104.0 H (80.0-100.0) fL MCH 35.9 H (25.0-35.0) pg Plt Count 113 L (150-450) k/uL Neutrophils # 21.9 H (1.3-7.7) k/uL PT (9.0-12.0) sec INR (<1.2) Sodium 124 L (137-145) mmol/L Potassium 3.0 L (3.5-5.1) mmol/L Chloride 89 L (98-107) mmol/L Carbon Dioxide 21 L (22-30) mmol/L BUN 91 H (9-20) mg/dL Creatinine 5.03 H (0.66-1.25) mg/dL Glucose 123 H (74-99) mg/dL POC Glucose (mg/dL) 135 H (75-99) mg/dL Calcium 8.1 L (8.4-10.2) mg/dL Phosphorus 5.2 H (2.5-4.5) mg/dL Magnesium 2.7 H (1.6-2.3) mg/dL Total Bilirubin 39.4 H* (0.2-1.3) mg/dL AST 248 H (17-59) U/L ALT 173 H (4-49) U/L Alkaline Phosphatase 189 H (38-126) U/L Total Protein 6.2 L (6.3-8.2) g/dL Albumin 2.5 L (3.5-5.0) g/dL Urine Protein (Negative) Urine Bilirubin (Negative) Amorphous Sediment (None) /hpf Urine Bacteria (None) /hpf Urine Mucus (None) /hpf 11/19/19 11/19/19 11/19/19 Range/Units 06:52 10:44 11:31 WBC (3.8-10.6) k/uL RBC (4.30-5.90) m/uL Hgb (13.0-17.5) gm/dL Hct (39.0-53.0) % MCV (80.0-100.0) fL MCH (25.0-35.0) pg Plt Count (150-450) k/uL Neutrophils # (1.3-7.7) k/uL PT 19.7 H (9.0-12.0) sec INR 2.0 H (<1.2) Sodium (137-145) mmol/L Potassium (3.5-5.1) mmol/L Chloride (98-107) mmol/L Carbon Dioxide (22-30) mmol/L BUN (9-20) mg/dL Creatinine (0.66-1.25) mg/dL Glucose (74-99) mg/dL POC Glucose (mg/dL) 118 H 110 H (75-99) mg/dL Calcium (8.4-10.2) mg/dL Phosphorus (2.5-4.5) mg/dL Magnesium (1.6-2.3) mg/dL Total Bilirubin (0.2-1.3) mg/dL AST (17-59) U/L ALT (4-49) U/L Alkaline Phosphatase (38-126) U/L Total Protein (6.3-8.2) g/dL Albumin (3.5-5.0) g/dL Urine Protein (Negative) Urine Bilirubin (Negative) Amorphous Sediment (None) /hpf Urine Bacteria (None) /hpf Urine Mucus (None) /hpf 11/19/19 Range/Units 17:15 WBC (3.8-10.6) k/uL RBC (4.30-5.90) m/uL Hgb (13.0-17.5) gm/dL Hct (39.0-53.0) % MCV (80.0-100.0) fL MCH (25.0-35.0) pg Plt Count (150-450) k/uL Neutrophils # (1.3-7.7) k/uL PT (9.0-12.0) sec INR (<1.2) Sodium (137-145) mmol/L Potassium (3.5-5.1) mmol/L Chloride (98-107) mmol/L Carbon Dioxide (22-30) mmol/L BUN (9-20) mg/dL Creatinine (0.66-1.25) mg/dL Glucose (74-99) mg/dL POC Glucose (mg/dL) 146 H (75-99) mg/dL Calcium (8.4-10.2) mg/dL Phosphorus (2.5-4.5) mg/dL Magnesium (1.6-2.3) mg/dL Total Bilirubin (0.2-1.3) mg/dL AST (17-59) U/L ALT (4-49) U/L Alkaline Phosphatase (38-126) U/L Total Protein (6.3-8.2) g/dL Albumin (3.5-5.0) g/dL Urine Protein (Negative) Urine Bilirubin (Negative) Amorphous Sediment (None) /hpf Urine Bacteria (None) /hpf Urine Mucus (None) /hpf Assessment and Plan (1) Alcoholic hepatitis with ascites Narrative/Plan: 44-year-old male with significant alcohol use over the past 2 years consisting of large amounts of daily liquor presenting to 2 weakness, abdominal discomfort and jaundice. Patient found to have markedly elevated liver enzymes on presentation with a total bilirubin 40.3, alkaline phosphatase 249, AST 304 and ALT 202 with INR elevated at 2.1 yesterday and 2 today after being given vitamin K. Ultrasound showed a cirrhotic appearing liver with hepatomegaly and nodularity as well as a ascites. Patient has a questionable history of Gilbert syndrome in the past, however current presentation is consistent with severe acute alcoholic hepatitis. Current Visit: Yes Status: Acute Code(s): K70.11 - ALCOHOLIC HEPATITIS WITH ASCITES SNOMED Code(s): 7545565608749885 (2) Acute renal failure Current Visit: Yes Status: Acute Code(s): N17.9 - ACUTE KIDNEY FAILURE, UNSPECIFIED SNOMED Code(s): 03251743 (3) Jaundice Current Visit: Yes Status: Acute Code(s): R17 - UNSPECIFIED JAUNDICE SNOMED Code(s): 79124468 Plan: Supportive care Continue to monitor CBC, CMP, INR Continue to monitor for signs of encephalopathy Continue lactulose 3 times a day Nephrology consultation seen the patient, appreciate the recommendations Solu-Medrol 40 mg daily Patient not a candidate for transfer to a tertiary center for liver transplant evaluation of active alcohol use Alcohol abstinence Monitor for signs or symptoms of alcohol withdrawal Midodrine, albumin and octreotide added for suspected hepatorenal syndrome Thank you for allowing us to participate in the care of the patient we will continue to follow
[2019-11-19] MEDS: methylPREDNISolone SOD SUCCI 40 MG/ML 1 ML VIAL IV SCH (17:58)
[2019-11-19] MEDS: OCTREOTIDE 100 MCG/ML INJ SQ SCH (18:01)
[2019-11-19] MEDS: ALBUMIN HUMAN 25% 50 ML in EMPTY BAG 1 BAG IVPB SCH ×4 (18:06→21:34)
[2019-11-19 20:03] LABS: Glucose,Whole Blood 131 mg/dL (75-99)
[2019-11-20] MEDS: OCTREOTIDE 100 MCG/ML INJ SQ SCH (00:55)
[2019-11-20 01:18] LABS: Glucose,Whole Blood 188 mg/dL (75-99)
[2019-11-20] MEDS ORDERED: PHYTONADIONE 10 MG in SODIUM CHLORIDE 0.9% 50 ML IVPB STA (01:25)
[2019-11-20] MEDS ORDERED: OCTREOTIDE 50 MCG in SODIUM CHLORIDE 0.9% 100 ML IVPB ONE (01:31)
[2019-11-20 01:36] LABS: HCT 26.3 % (39.0-53.0); HGB 9.1 gm/dL (13.0-17.5); MCH 37.2 pg (25.0-35.0); MCHC 34.6 g/dL (31.0-37.0); MCV 107.5 fL (80.0-100.0); Macrocytosis Moderate; Mean Platelet Volume 10.5; Platelet Count 107 k/uL (150-450); RBC 2.45 m/uL (4.30-5.90); RDW 14.3 % (11.5-15.5); WBC 27.3 k/uL (3.8-10.6)
[2019-11-20 01:43] LABS: Magnesium 2.6 mg/dL (1.6-2.3); Potassium 4.1 mmol/L (3.5-5.1)
[2019-11-20 02:00] LABS: INR 1.9 (<1.2); Partial Thromboplastin Time 41.7 sec (22.0-30.0); Prothrombin Time 18.6 sec (9.0-12.0)
[2019-11-20 02:15] LABS: Band Neutrophils % 2 %; Lymphocytes # (M) 1.09 k/uL (1.0-4.8); Monocytes # (M) 0.27 k/uL (0-1.0); Neutrophils % (M) 93 %; Nucleated Red Blood Cells 0 /100 WBC (0-0); Total Cells Counted 100
[2019-11-20 02:16] LABS: Glucose,Whole Blood 157 mg/dL (75-99)
[2019-11-20] MEDS: PANTOPRAZOLE 40 MG/10 ML VIAL IVP SCH ×3 (02:40→21:04)
[2019-11-20] MEDS: SODIUM CHLORIDE 0.9% 1,000 ML IV SCH (03:42)
--- NOTE | 2019-11-20 04:35 | P.PN ---
Progress Note - Text Progress Note Date: 11/20/19 Notified by RN that A-team was activated on patient due to hematemesis. The patient was seen and evaluated at the bedside. The patient had multiple large episodes of bright red bloody vomitus. The patient also reported having a dark bowel movement a few minutes prior. The patient reported that he has never had bloody vomitus in the past. He denied abdominal pain, chest pain, shortness of breath, headache, or dizziness. General: Severely jaundiced male, in no acute distress HEENT: NC/AT, scleral icterus, moist conjunctiva, no lid-lag, PERRLA Cardiovascular: S1/S2 wnl, no murmurs, rubs, or gallops Lungs: Clear to auscultation, normal respiratory effort, no accessory muscle use Abdominal: Mildly distended abdomen, non-tender, no guarding Skin: Warm, dry Extremities: No edema or contractures Psychiatric: Alert and oriented to person, place and time, appropriate affect Neuro: CN II-XII grossly intact, Strength 5/5 in all 4 extremities, Speech intact, Sensation to light touch grossly intact throughout Ordered 1 U FFP, 10 mg Vit K IVPB, Ceftriaxone 1 g qd, Protonix IV, and Octretoide 50 mcg IV bolus followed by infusion. Discussed the case with GI system sales consultant Dr. Nichols who was in agreement with the above management and recommended to transfer the patient to the MICU and keep him NPO overnight for likely EGD in am. The ENTRY LEVEL ACCOUNT MANAGER discussed the case with Dr Christianson who accepted the patient to the MICU. The patient was transferred to the MICU in stable condition.
[2019-11-20] MEDS: OCTREOTIDE 500 MCG in SODIUM CHLORIDE 0.9% 250 ML IV SCH ×2 (04:52→15:29)
[2019-11-20 05:25] LABS: MCH 37.4 pg (25.0-35.0); MCHC 34.4 g/dL (31.0-37.0); MCV 108.6 fL (80.0-100.0); Macrocytosis Marked; Mean Platelet Volume 10.8; Platelet Count 105 k/uL (150-450); RDW 14.2 % (11.5-15.5); WBC 27.5 k/uL (3.8-10.6)
[2019-11-20 05:39] LABS: HGB 6.4 gm/dL (13.0-17.5)
[2019-11-20 05:40] LABS: HCT 18.5 % (39.0-53.0)
[2019-11-20] MEDS ORDERED: METOCLOPRAMIDE 5 MG/ML 2 ML VIAL IVP STA (06:17)
[2019-11-20] MEDS ORDERED: PROPOFOL 100 ML IV ONE (06:45)
[2019-11-20] MEDS ORDERED: ETOMIDATE 2 MG/ML 10 ML VIAL ONE (06:50)
[2019-11-20] MEDS ORDERED: PHENYLEPHRINE-0.9% NACL SYG 1 MG/10 ML SYRINGE ONE (06:50)
[2019-11-20] MEDS ORDERED: PROPOFOL 10 MG/ML 20 ML VIAL IV ONE (06:50)
[2019-11-20] MEDS ORDERED: MIDAZOLAM 2 MG/2 ML VIAL ONE (06:50)
[2019-11-20] MEDS ORDERED: IV FLUID CONTINUATION 500 ML IV ONE (07:00)
[2019-11-20] MEDS: MIDODRINE 5 MG TAB PO SCH (07:33)
[2019-11-20] MEDS: PROPOFOL 1,000 MG in EMPTY BAG 1 BAG IV SCH ×4 (08:00→23:36)
[2019-11-20] MEDS ORDERED: CISATRACURIUM 2 MG/ML 5 ML VIAL IV ONE ×2 (08:06→08:08)
--- NOTE | 2019-11-20 08:36 | P.PCN ---
Date of Procedure: 11/20/19 Description of Procedure: BRIEF HISTORY: 44-year-old male with significant alcohol use over the past 2 years consisting of large amounts of daily liquor presenting to 2 weakness, abdominal discomfort and jaundice. Patient found to have markedly elevated liver enzymes on presentation with a total bilirubin 40.3, alkaline phosphatase 249, AST 304 and ALT 202 with INR elevated at 2.1 yesterday and 2 today after being given vitamin K. Ultrasound showed a cirrhotic appearing liver with hepatomegaly and nodularity as well as a ascites. Patient has a questionable history of Gilbert syndrome in the past, however current presentation is consistent with severe acute alcoholic hepatitis. The patient had a episode of bloody emesis early this morning. He was transferred to the ICU where he continued to have further episodes of bloody emesis. EGD ordered for further evaluation. PROCEDURE PERFORMED: Esophagogastroduodenoscopy with variceal band ligation. PREOPERATIVE DIAGNOSIS: Hematemesis, anemia of acute blood loss. ESTIMATED BLOOD LOSS: Minimal. IV sedation per anesthesia. PROCEDURE: After informed consent was obtained, the patient was brought into the endoscopy unit. IV sedation was administered by Anesthesia under continuous monitoring. Initially the Olympus GIF-190 video endoscope was inserted into the mouth. Esophagus intubated without any difficulty. It was gradually advanced into the stomach and duodenum and carefully examined. The bulb and the second part of the duodenum appeared grossly normal however extremely limited visualization secondary to old blood. The scope at this time was withdrawn to the stomach, adequately insufflated with air, and upon careful examination, mucosa of the antrum, body, cardia and the fundus appeared grossly normal, however complete visualization of the mucosa extremely limited by old hemolyzed blood and clots. The scope was then withdrawn into the esophagus. The GE junction was located at 39 cm from the incisors. A small actively bleeding varices was noted in the distal esophagus. This was treated with esophageal band ligation with hemostasis achieved. The patient tolerated the procedure well. IMPRESSION: 1. Actively bleeding small varices in the distal esophagus just proximal to the GE junction and treated with band ligation with hemostasis achieved. 2. Large amount of old blood and clots noted in the stomach and duodenum. RECOMMENDATIONS: The findings of this examination were discussed with the ICU team. Continue Sandostatin, Protonix drip, ceftriaxone daily and supportive care. Would leave the patient intubated for now. Extremely poor prognosis given multiple complicating medical conditions. Patient is scheduled to transfuse PRBCs.
[2019-11-20 08:43] LABS: ABG Base Excess -19.3 mmol/L; ABG Oxygen Saturation 99.9 % (94-97); ABG PCO2 26 mmHg (35-45); ABG PO2 381 mmHg (83-108); ABG TCO2 10 mmol/L (19-24)
--- NOTE | 2019-11-20 08:45 | XR ---
EXAMINATION TYPE: XR chest 1V DATE OF EXAM: 11/20/2019 COMPARISON: NONE HISTORY: Chest pain TECHNIQUE: Single frontal view of the chest is obtained. FINDINGS: Endotracheal tube is 1.8 cm from the robinson. Left subclavian central venous line with its distal tip overlying the SVC. No evidence for infiltrate. No pneumothorax identified. The cardiac silhouette size is within normal limits. The osseous structures are intact. IMPRESSION: 1. Central venous line and endotracheal tube as discussed.
[2019-11-20 08:48] LABS: ABG PH 7.17 (7.35-7.45)
[2019-11-20] MEDS ORDERED: SODIUM BICARB 8.4% 50 ML SYR (1 MEQ/ML) IV STA ×2 (08:48→12:45)
[2019-11-20 08:49] LABS: ABG HCO3 9 mmol/L (21-25); Allen Test Performed? no
[2019-11-20] MEDS ORDERED: NOREPINEPHRIN 4 MG-0.9% NS PMX 4 MG/250 ML ML IV ONE (08:58)
[2019-11-20] MEDS ORDERED: SODIUM CHLORIDE 0.9% 2,000 ML IV ONE ×2 (09:08→17:43)
[2019-11-20] MEDS ORDERED: DESMOPRESSIN ACETATE 24 MCG in SODIUM CHLORIDE 0.9% 50 ML IVPB ONE (09:18)
--- NOTE | 2019-11-20 09:20 | P.PN ---
Subjective Patient is seen in follow-up for acute kidney injury. Oliguric. Patient developed bloody emesis yesterday and was subsequently intubated. He is c urrently receiving 2 units of blood. Levophed will be started. Currently on 40% FiO2. Creatinine 5.5 today. Vital signs reviewed. Blood pressure in the systolic 70s to 80s. General: The patient appeared well nourished and normally developed. HEENT: Head exam is unremarkable. Neck is without jugular venous distension. LUNGS: Lungs are clear to auscultation and percussion. Breath sounds decreased. HEART: Rate and Rhythm are regular. ABDOMEN: Soft, nondistended. EXTREMITITES: No edema. Objective - Vital Signs Vital signs: Vital Signs Temp 96 F L 11/20/19 08:45 Pulse 75 11/20/19 08:45 Resp 24 11/20/19 08:45 BP 76/35 11/20/19 08:45 Pulse Ox 100 11/20/19 08:45 Intake & Output 11/19/19 11/20/19 11/20/19 18:59 06:59 18:59 Intake Total 280 939 6605 Output Total 10 15 0 Balance 594 487 4035 Intake: IV 350 600 Octreotide 500 mcg In 50 Sodium Chloride 0.9% 250 ml @ 50 MCG/HR 25 mls/hr IV .Q10H JAILENE Rx#: [id number] Sodium Chloride 0.9% 1, 300 100 000 ml @ 100 mls/hr IV . Q10H JAILENE Rx#:[id number] Intake, IV Titration 500 Amount Albumin Human 25% 50 ml 200 In Empty Bag 1 bag @ 50 mls/hr IVPB Q1H JAILENE Rx#: [id number] Sodium Chloride 0.9% 1, 300 000 ml @ 100 mls/hr IV . Q10H JAILENE Rx#:[id number] Oral 540 Blood Product 0 931 Ffp 24 Cpd Unit 0 311 [id number] Rc As-1 Unit 310 [id number] Rc Pheresis As-3 Unit 310 [id number] Output: Urine 10 15 0 Other: Voiding Method Indwelling Catheter Indwelling Catheter # Voids 0 # Bowel Movements 2 - Labs CBC & Chem 7: 11/20/19 05:12 11/20/19 01:18 Labs: Abnormal Lab Results - Last 24 Hours (Table) 11/19/19 11/19/19 11/19/19 Range/Units 10:44 11:31 17:15 WBC (3.8-10.6) k/uL RBC (4.30-5.90) m/uL Hgb (13.0-17.5) gm/dL Hct (39.0-53.0) % MCV (80.0-100.0) fL MCH (25.0-35.0) pg Plt Count (150-450) k/uL Neutrophils # (Manual) (1.3-7.7) k/uL Macrocytosis PT 19.7 H (9.0-12.0) sec INR 2.0 H (<1.2) APTT (22.0-30.0) sec ABG pH (7.35-7.45) ABG pCO2 (35-45) mmHg ABG pO2 (83-108) mmHg ABG HCO3 (21-25) mmol/L ABG Total CO2 (19-24) mmol/L ABG O2 Saturation (94-97) % Sodium (137-145) mmol/L Chloride (98-107) mmol/L Carbon Dioxide (22-30) mmol/L BUN (9-20) mg/dL Creatinine (0.66-1.25) mg/dL Glucose (74-99) mg/dL POC Glucose (mg/dL) 110 H 146 H (75-99) mg/dL Calcium (8.4-10.2) mg/dL Magnesium (1.6-2.3) mg/dL Crossmatch 11/19/19 11/20/19 11/20/19 Range/Units 20:01 01:08 01:18 WBC 27.3 H (3.8-10.6) k/uL RBC 2.45 L (4.30-5.90) m/uL Hgb 9.1 L D (13.0-17.5) gm/dL Hct 26.3 L (39.0-53.0) % MCV 107.5 H (80.0-100.0) fL MCH 37.2 H (25.0-35.0) pg Plt Count 107 L (150-450) k/uL Neutrophils # (Manual) 25.90 H (1.3-7.7) k/uL Macrocytosis PT (9.0-12.0) sec INR (<1.2) APTT (22.0-30.0) sec ABG pH (7.35-7.45) ABG pCO2 (35-45) mmHg ABG pO2 (83-108) mmHg ABG HCO3 (21-25) mmol/L ABG Total CO2 (19-24) mmol/L ABG O2 Saturation (94-97) % Sodium (137-145) mmol/L Chloride (98-107) mmol/L Carbon Dioxide (22-30) mmol/L BUN (9-20) mg/dL Creatinine (0.66-1.25) mg/dL Glucose (74-99) mg/dL POC Glucose (mg/dL) 131 H 188 H (75-99) mg/dL Calcium (8.4-10.2) mg/dL Magnesium (1.6-2.3) mg/dL Crossmatch 11/20/19 11/20/19 11/20/19 Range/Units 01:18 01:18 02:15 WBC (3.8-10.6) k/uL RBC (4.30-5.90) m/uL Hgb (13.0-17.5) gm/dL Hct (39.0-53.0) % MCV (80.0-100.0) fL MCH (25.0-35.0) pg Plt Count (150-450) k/uL Neutrophils # (Manual) (1.3-7.7) k/uL Macrocytosis PT 18.6 H (9.0-12.0) sec INR 1.9 H (<1.2) APTT 41.7 H (22.0-30.0) sec ABG pH (7.35-7.45) ABG pCO2 (35-45) mmHg ABG pO2 (83-108) mmHg ABG HCO3 (21-25) mmol/L ABG Total CO2 (19-24) mmol/L ABG O2 Saturation (94-97) % Sodium 125 L (137-145) mmol/L Chloride 92 L (98-107) mmol/L Carbon Dioxide 13 L (22-30) mmol/L BUN 118 H* (9-20) mg/dL Creatinine 5.50 H (0.66-1.25) mg/dL Glucose 167 H (74-99) mg/dL POC Glucose (mg/dL) 157 H (75-99) mg/dL Calcium 8.0 L (8.4-10.2) mg/dL Magnesium 2.6 H (1.6-2.3) mg/dL Crossmatch 11/20/19 11/20/19 11/20/19 Range/Units 02:17 05:12 08:41 WBC 27.5 H (3.8-10.6) k/uL RBC 1.70 L (4.30-5.90) m/uL Hgb 6.4 L* D (13.0-17.5) gm/dL Hct 18.5 L* (39.0-53.0) % MCV 108.6 H (80.0-100.0) fL MCH 37.4 H (25.0-35.0) pg Plt Count 105 L (150-450) k/uL Neutrophils # (Manual) (1.3-7.7) k/uL Macrocytosis Marked A PT (9.0-12.0) sec INR (<1.2) APTT (22.0-30.0) sec ABG pH 7.17 L* (7.35-7.45) ABG pCO2 26 L (35-45) mmHg ABG pO2 381 H (83-108) mmHg ABG HCO3 9 L* (21-25) mmol/L ABG Total CO2 10 L (19-24) mmol/L ABG O2 Saturation 99.9 H (94-97) % Sodium (137-145) mmol/L Chloride (98-107) mmol/L Carbon Dioxide (22-30) mmol/L BUN (9-20) mg/dL Creatinine (0.66-1.25) mg/dL Glucose (74-99) mg/dL POC Glucose (mg/dL) (75-99) mg/dL Calcium (8.4-10.2) mg/dL Magnesium (1.6-2.3) mg/dL Crossmatch See Detail Assessment and Plan Plan: Assessment: 1. Acute kidney injury secondary to ATN secondary to hypotension and pigment nephropathy from elevated bilirubin. Hepatorenal syndrome cannot be completely ruled out. Urine sodium noted to be low at 10. Urine osmolality 328. UA is quite benign. No hydronephrosis noted on kidney ultrasound. 2. Hyponatremia secondary to acute kidney injury. 3. Hypokalemia from poor oral intake. Magnesium normal. Better. 4. Metabolic acidosis secondary to acute kidney injury. 5. Diabetes mellitus. 6. History of alcohol abuse. 7. Ascites. 8. Acute blood loss anemia secondary to variceal bleed status post EGD with banding. Maintained on octreotide drip. Also on midodrine. Plan: Discontinue normal saline. Start isotonic bicarbonate drip to be run at 100 mL an hour. I will give him a dose of IV DDAVP. Consult vascular surgery for dialysis catheter placement. Due to worsening renal function with anuria and severe acidosis, I will initiate renal replacement therapy. Plan for first treatment of hemodialysis today and second treatment tomorrow. I spoke to the patient's over the phone and she is in agreement with the above plan.
[2019-11-20] MEDS: DEXTROSE 5% IN WATER 1,000 ML with SODIUM BICARB (1 MEQ/ML) 150 ML IV SCH ×2 (09:41→21:04)
[2019-11-20] MEDS: LACTULOSE 20 GM/30 ML CUP PO SCH ×3 (09:44→21:14)
[2019-11-20] MEDS: NOREPINEPHRINE 8 MG in SODIUM CHLORIDE 0.9% 250 ML IV SCH ×2 (09:47→15:48)
[2019-11-20 09:54] LABS: HCT 22.9 % (39.0-53.0); HGB 7.4 gm/dL (13.0-17.5); Hypochromasia Slight; MCH 34.1 pg (25.0-35.0); MCHC 32.6 g/dL (31.0-37.0); MCV 104.7 fL (80.0-100.0); Macrocytosis Moderate; Platelet Count 122 k/uL (150-450); RBC 2.18 m/uL (4.30-5.90); RDW 15.8 % (11.5-15.5); WBC 40.3 k/uL (3.8-10.6)
[2019-11-20] MEDS: CHLORHEXIDINE GLUCONATE 15 ML CUP MUCOUS MEM SCH ×2 (09:54→21:05)
[2019-11-20] MEDS: methylPREDNISolone SOD SUCCI 40 MG/ML 1 ML VIAL IV SCH (09:54)
--- NOTE | 2019-11-20 11:01 | P.PN ---
Subjective Progress Note Date: 11/20/19 Principal diagnosis: Jaundice Overnight events noted, patient had an episode of upper GI bleeding secondary to esophageal varices according to an EGD done this morning. He was transfused 2 units of packed red blood cells. He is currently intubated. Objective - Vital Signs Vital signs: Vital Signs Temp 96 F L 11/20/19 08:55 Pulse 75 11/20/19 08:55 Resp 24 11/20/19 08:55 BP 75/33 11/20/19 08:55 Pulse Ox 100 11/20/19 08:55 Intake & Output 11/19/19 11/20/19 11/20/19 18:59 06:59 18:59 Intake Total 751 518 8741 Output Total 10 15 0 Balance 367 187 4270 Intake: IV 350 600 Octreotide 500 mcg In 50 Sodium Chloride 0.9% 250 ml @ 50 MCG/HR 25 mls/hr IV .Q10H JAILENE Rx#: [id number] Sodium Chloride 0.9% 1, 300 100 000 ml @ 100 mls/hr IV . Q10H JAILENE Rx#:[id number] Intake, IV Titration 500 Amount Albumin Human 25% 50 ml 200 In Empty Bag 1 bag @ 50 mls/hr IVPB Q1H JAILENE Rx#: [id number] Sodium Chloride 0.9% 1, 300 000 ml @ 100 mls/hr IV . Q10H JAILENE Rx#:[id number] Oral 540 Blood Product 0 931 Ffp 24 Cpd Unit 0 311 [id number] Rc As-1 Unit 310 [id number] Rc Pheresis As-3 Unit 310 [id number] Output: Urine 10 15 0 Other: Voiding Method Indwelling Catheter Indwelling Catheter # Voids 0 # Bowel Movements 2 - Exam Constitutional: On mechanical ventilation in no acute distress Eyes: icteric sclerae, moist conjunctiva, no lid-lag, PERRLA, ENMT: ET tube, dried blood in the oropharynx Neck: Supple, FROM, no masses, or JVD, No carotid bruits, No thyromegaly Lungs: Clear to auscultation, Clear to percussion, Normal respiratory effort, no accessory muscle use Cardiovascular: Heart regular in rate and rhythm, No murmurs, gallops, or rubs, No peripheral edema Abdominal: Distended, Soft, Normoactive bowel sounds, mild hepatomegaly, No splenomegaly, No palpable mass Skin: Yellow skin. Normal temperature, tone, texture, turgor, no induration, No subcutaneous nodules, No rash, lesions, No ulcers Extremities: No digital cyanosis, No clubbing, Pedal pulses intact and symmetrical, Radial pulses intact and symmetrical, No calf tenderness Neuro: Sedated. - Labs CBC & Chem 7: 11/20/19 09:35 11/20/19 01:18 Labs: Abnormal Lab Results - Last 24 Hours (Table) 11/19/19 11/19/19 11/19/19 Range/Units 10:44 11:31 17:15 WBC (3.8-10.6) k/uL RBC (4.30-5.90) m/uL Hgb (13.0-17.5) gm/dL Hct (39.0-53.0) % MCV (80.0-100.0) fL MCH (25.0-35.0) pg RDW (11.5-15.5) % Plt Count (150-450) k/uL Neutrophils # (Manual) (1.3-7.7) k/uL Macrocytosis PT 19.7 H (9.0-12.0) sec INR 2.0 H (<1.2) APTT (22.0-30.0) sec ABG pH (7.35-7.45) ABG pCO2 (35-45) mmHg ABG pO2 (83-108) mmHg ABG HCO3 (21-25) mmol/L ABG Total CO2 (19-24) mmol/L ABG O2 Saturation (94-97) % Sodium (137-145) mmol/L Chloride (98-107) mmol/L Carbon Dioxide (22-30) mmol/L BUN (9-20) mg/dL Creatinine (0.66-1.25) mg/dL Glucose (74-99) mg/dL POC Glucose (mg/dL) 110 H 146 H (75-99) mg/dL Plasma Lactic Acid Joselo (0.7-2.0) mmol/L Calcium (8.4-10.2) mg/dL Magnesium (1.6-2.3) mg/dL Crossmatch 11/19/19 11/20/19 11/20/19 Range/Units 20:01 01:08 01:18 WBC 27.3 H (3.8-10.6) k/uL RBC 2.45 L (4.30-5.90) m/uL Hgb 9.1 L D (13.0-17.5) gm/dL Hct 26.3 L (39.0-53.0) % MCV 107.5 H (80.0-100.0) fL MCH 37.2 H (25.0-35.0) pg RDW (11.5-15.5) % Plt Count 107 L (150-450) k/uL Neutrophils # (Manual) 25.90 H (1.3-7.7) k/uL Macrocytosis PT (9.0-12.0) sec INR (<1.2) APTT (22.0-30.0) sec ABG pH (7.35-7.45) ABG pCO2 (35-45) mmHg ABG pO2 (83-108) mmHg ABG HCO3 (21-25) mmol/L ABG Total CO2 (19-24) mmol/L ABG O2 Saturation (94-97) % Sodium (137-145) mmol/L Chloride (98-107) mmol/L Carbon Dioxide (22-30) mmol/L BUN (9-20) mg/dL Creatinine (0.66-1.25) mg/dL Glucose (74-99) mg/dL POC Glucose (mg/dL) 131 H 188 H (75-99) mg/dL Plasma Lactic Acid Joselo (0.7-2.0) mmol/L Calcium (8.4-10.2) mg/dL Magnesium (1.6-2.3) mg/dL Crossmatch 11/20/19 11/20/19 11/20/19 Range/Units 01:18 01:18 02:15 WBC (3.8-10.6) k/uL RBC (4.30-5.90) m/uL Hgb (13.0-17.5) gm/dL Hct (39.0-53.0) % MCV (80.0-100.0) fL MCH (25.0-35.0) pg RDW (11.5-15.5) % Plt Count (150-450) k/uL Neutrophils # (Manual) (1.3-7.7) k/uL Macrocytosis PT 18.6 H (9.0-12.0) sec INR 1.9 H (<1.2) APTT 41.7 H (22.0-30.0) sec ABG pH (7.35-7.45) ABG pCO2 (35-45) mmHg ABG pO2 (83-108) mmHg ABG HCO3 (21-25) mmol/L ABG Total CO2 (19-24) mmol/L ABG O2 Saturation (94-97) % Sodium 125 L (137-145) mmol/L Chloride 92 L (98-107) mmol/L Carbon Dioxide 13 L (22-30) mmol/L BUN 118 H* (9-20) mg/dL Creatinine 5.50 H (0.66-1.25) mg/dL Glucose 167 H (74-99) mg/dL POC Glucose (mg/dL) 157 H (75-99) mg/dL Plasma Lactic Acid Joselo (0.7-2.0) mmol/L Calcium 8.0 L (8.4-10.2) mg/dL Magnesium 2.6 H (1.6-2.3) mg/dL Crossmatch 11/20/19 11/20/19 11/20/19 Range/Units 02:17 05:12 08:41 WBC 27.5 H (3.8-10.6) k/uL RBC 1.70 L (4.30-5.90) m/uL Hgb 6.4 L* D (13.0-17.5) gm/dL Hct 18.5 L* (39.0-53.0) % MCV 108.6 H (80.0-100.0) fL MCH 37.4 H (25.0-35.0) pg RDW (11.5-15.5) % Plt Count 105 L (150-450) k/uL Neutrophils # (Manual) (1.3-7.7) k/uL Macrocytosis Marked A PT (9.0-12.0) sec INR (<1.2) APTT (22.0-30.0) sec ABG pH 7.17 L* (7.35-7.45) ABG pCO2 26 L (35-45) mmHg ABG pO2 381 H (83-108) mmHg ABG HCO3 9 L* (21-25) mmol/L ABG Total CO2 10 L (19-24) mmol/L ABG O2 Saturation 99.9 H (94-97) % Sodium (137-145) mmol/L Chloride (98-107) mmol/L Carbon Dioxide (22-30) mmol/L BUN (9-20) mg/dL Creatinine (0.66-1.25) mg/dL Glucose (74-99) mg/dL POC Glucose (mg/dL) (75-99) mg/dL Plasma Lactic Acid Joselo (0.7-2.0) mmol/L Calcium (8.4-10.2) mg/dL Magnesium (1.6-2.3) mg/dL Crossmatch See Detail 11/20/19 11/20/19 Range/Units 09:35 09:35 WBC 40.3 H (3.8-10.6) k/uL RBC 2.18 L (4.30-5.90) m/uL Hgb 7.4 L (13.0-17.5) gm/dL Hct 22.9 L (39.0-53.0) % MCV 104.7 H (80.0-100.0) fL MCH (25.0-35.0) pg RDW 15.8 H (11.5-15.5) % Plt Count 122 L (150-450) k/uL Neutrophils # (Manual) (1.3-7.7) k/uL Macrocytosis PT (9.0-12.0) sec INR (<1.2) APTT (22.0-30.0) sec ABG pH (7.35-7.45) ABG pCO2 (35-45) mmHg ABG pO2 (83-108) mmHg ABG HCO3 (21-25) mmol/L ABG Total CO2 (19-24) mmol/L ABG O2 Saturation (94-97) % Sodium (137-145) mmol/L Chloride (98-107) mmol/L Carbon Dioxide (22-30) mmol/L BUN (9-20) mg/dL Creatinine (0.66-1.25) mg/dL Glucose (74-99) mg/dL POC Glucose (mg/dL) (75-99) mg/dL Plasma Lactic Acid Joselo 8.6 H* (0.7-2.0) mmol/L Calcium (8.4-10.2) mg/dL Magnesium (1.6-2.3) mg/dL Crossmatch Assessment and Plan Plan: Jaundice Elevated LFTs Cirrhosis likely secondary to alcohol abuse Upper GI bleeding sec to variceal bleed EtOH abuse Hypotension Hypokalemia Hyponatremia Metabolic acidosis Acute renal failure, oliguric ATN vs. hepatorenal syndrome, urine Na very low favoring the latter Continue IV fluids Started on pressors this am for low BP Octreotide gtt Protonix IV BID Given 2 units of PRBCs, currently hgb stabilized will continue to monitor. Given desmopressin by nephrology Planning dialysis, as he is not making urine, agreeable to that. Recheck lytes in am Started on steroids by GI for acute hepatitis, not sure if it is going to help Case discussed with in details today. She would like him to be full code for now. I told her that his prognosis remains very poor and that we recommend a DO NOT RESUSCITATE order. She is going to discuss that with other family members and get back to me on that.
--- NOTE | 2019-11-20 11:27 | P.CNPUL ---
History of Present Illness Consult date: 11/20/19 Chief complaint: Acute GI bleeding History of present illness: This is a 44-year-old male patient, alcoholic, who is been drinking large amount of alcohol on a daily basis presented to the hospital because of generalized weakness, abdominal distention, abdominal discomfort and jaundice. The patient was found to have significantly abnormal liver function tests with a bilirubin of 40.3 and alkaline phosphatase of 249 with an AST of 304 and ALT of 22 with an INR of 2.1 at a time of admission. The patient's ultrasound of the abdomen showed liver cirrhosis with hepatomegaly and nodularities and as well as ascites. The patient presented with altered mentation, generalized weakness, and a component of acute alcoholic hepatitis. In addition the patient had episodes of bloody emesis that started earlier this morning and for that reason the patient got transferred to the intensive care unit where he continued to have further episodes of emesis. GI was involved in the care and the patient was given an EGD this morning. Note that to protect the patient's airway, the patient was intubated and placed on a mechanical ventilator by [employer] in the intensive care units. patient was started on propofol for sedation. EGD was completed and the patient was found to have active bleeding from small varices in the distal esophagus just proximal to the GE junction and treated with band ligation and hemostasis was achieved. Large amount of old blood and blood clots were found in the stomach and it was aspirated and suctioned out from the st omach and the duodenum. Note that the patient's hemoglobin dropped from 9.1- 6.4. The patient received a total of 2 units of packed RBC and the third unit is running right now and a follow-up hemoglobin is pending. Meanwhile, the patient is also being resuscitated IV fluids. He'll be given a total of 2 L of IV fluid boluses. On a mechanical ventilator, the patient is currently on assist control mode at the rate of 24 with a tidal volume of 500 and FiO2 of 20% with a PEEP of 5 and a blood gas showed a pH of 7.17 with a pCO2 of 26 and pO2 of 381 and for that reason the FiO2 was found to 50%. The patient is currently also on Sandostatin 50 g an hour. He received a total of 2 units of packed RBC and the third is in progress. He received a unit of fresh frozen plasma. He was given vitamin K regarding his coagulopathy. He also has an acute kidney injury. He is not producing any urine output. His creatinine was at 4.24 at time of admission is currently up to 5.5. Nephrology has been consulted and the recommendation was to proceed with dialysis if possible today. Lactic acid le edith from today is at 8.6. He white cell count count is at 27.5. He is on empiric IV Rocephin as a empiric antibiotic coverage for now. IV fluids to be maintained at D5 with 150 mg of sodium bicarb at the rate of 100 mL an hour. He is also on pressors and norepinephrine infusion is running at 0.05 g per KG per minute for blood pressure support. Review of Systems ROS unobtainable: due to endotracheal tube, due to mental status Past Medical History Past Medical History: Diabetes Mellitus, Liver Disease Additional Past Medical History / Comment(s): Alcoholic liver cirrhosis, diabetes mellitus, osteoarthritis, alcoholism, possible Gilbert syndrome History of Any Multi-Drug Resistant Organisms: None Reported Past Surgical History: Adenoidectomy Past Psychological History: No Psychological Hx Reported Smoking Status: Never smoker Past Alcohol Use History: Abuse, Heavy Past Drug Use History: None Reported - Past Family History Mother Family Medical History: Cancer Father Family Medical History: Diabetes Mellitus Medications and Allergies Home Medications Medication Instructions Recorded Confirmed Type Cetirizine HCl [Zyrtec] 10 mg PO DAILY 11/18/19 11/18/19 History Ibuprofen [Advil] 400 mg PO Q6H PRN 11/18/19 11/18/19 History metFORMIN HCL [Glucophage] 500 mg PO BID 11/18/19 11/18/19 History Allergies Allergy/AdvReac Type Severity Reaction Status Date / Time No Known Allergies Allergy Verified 11/18/19 10:59 Physical Exam Vitals: Vital Signs Temp Pulse Pulse Pulse Resp BP BP 11/20/19 08:55 96 F L 75 24 75/33 11/20/19 08:45 96 F L 75 24 76/35 11/20/19 08:25 96 F L 75 24 75/45 11/20/19 08:05 96 F L 85 12 91/44 11/20/19 07:55 95.9 F L 80 12 77/38 11/20/19 07:23 96.2 F L 70 12 69/47 11/20/19 07:00 75 13 109/45 11/20/19 06:30 85 27 H 91/56 11/20/19 06:00 90 24 72/46 11/20/19 05:34 96.2 F L 82 16 77/46 11/20/19 05:30 84 21 81/54 11/20/19 05:24 96.0 F L 84 18 81/54 11/20/19 05:00 80 23 82/52 11/20/19 04:30 80 24 94/49 11/20/19 04:00 97.0 F L 81 19 86/39 11/20/19 03:30 86/39 11/20/19 03:00 86 11 L 105/58 11/20/19 02:30 76 12 105/58 11/20/19 02:11 87 18 11/20/19 01:25 112 H 117/71 11/20/19 01:15 87 89/55 11/20/19 01:05 92 102/51 11/19/19 21:00 97.6 F 68 16 98/62 11/19/19 18:48 60 90/54 11/19/19 15:52 77 84 16 11/19/19 13:00 97.5 F L 77 16 BP Pulse Ox 11/20/19 08:55 100 11/20/19 08:45 100 11/20/19 08:25 100 11/20/19 08:05 100 11/20/19 07:55 100 11/20/19 07:23 99 11/20/19 07:00 100 11/20/19 06:30 97 11/20/19 06:00 98 11/20/19 05:34 99 11/20/19 05:30 11/20/19 05:24 98 11/20/19 05:00 100 11/20/19 04:30 97 11/20/19 04:00 97 11/20/19 03:30 11/20/19 03:00 96 11/20/19 02:30 93 L 11/20/19 02:11 11/20/19 01:25 99 11/20/19 01:15 100 11/20/19 01:05 100 11/19/19 21:00 99 11/19/19 18:48 11/19/19 15:52 11/19/19 13:00 75/42 98 Intake and Output 11/19/19 11/20/19 11/20/19 22:59 06:59 14:59 Intake Total 838 232 9835 Output Total 10 15 0 Balance 647 838 6220 Intake: IV 350 600 Octreotide 500 mcg In 50 Sodium Chloride 0.9% 250 ml @ 50 MCG/HR 25 mls/hr IV .Q10H JAILENE Rx#: [id number] Sodium Chloride 0.9% 1, 300 100 000 ml @ 100 mls/hr IV . Q10H JAILENE Rx#:[id number] Intake, IV Titration 500 Amount Albumin Human 25% 50 ml 200 In Empty Bag 1 bag @ 50 mls/hr IVPB Q1H JAILENE Rx#: [id number] Sodium Chloride 0.9% 1, 300 000 ml @ 100 mls/hr IV . Q10H JAILENE Rx#:[id number] Blood Product 0 931 Ffp 24 Cpd Unit 0 311 [id number] Rc As-1 Unit 310 [id number] Rc Pheresis As-3 Unit 310 [id number] Output: Urine 10 15 0 Other: Voiding Method Indwelling Catheter Indwelling Catheter # Voids 0 # Bowel Movements 2 Gen. appearance the patient is intubated on a mechanical ventilator and sedated. orotracheal tube is in place and the patient does not have an OG tube at this point in time. he is jaundiced and icteric. Head exam was generally normal. There was no scleral icterus or corneal arcus. Mucous membranes were moist. Neck was supple and without jugular venous distension, thyromegaly, or carotid bruits. Carotids were easily palpable bilaterally. There was no adenopathy. The patient is conjunctival pallor and icterus. Lungs were clear to auscultation and percussion, and with normal diaphragmatic excursion. No wheezes or rales were noted. Cardiac exam revealed the PMI to be normally situated and sized. The rhythm was regular and no extrasystoles were noted during several minutes of auscultation. The first and second heart sounds were normal and physiologic splitting of the second heart sound was noted. There were no murmurs, rubs, clicks, or gallops. Abdomen slightly distended soft. No direct tenderness no rebound tensile guarding. There is positive fluid wave and ascites. Examination of the extremities revealed easily palpable radial, femoral and pedal pulses. There was no cyanosis, clubbing or edema. Extremities are somewhat cold and clammy and there is diminished pulses in all 4 extremities. Neurologically the patient is sedated with propofol and is calm and comfortable symptoms with the mechanical ventilator. Results - Laboratory Findings CBC and BMP: 11/20/19 09:35 11/20/19 01:18 ABG ABG pH 7.17 (7.35-7.45) L* 11/20/19 08:41 ABG pCO2 26 mmHg (35-45) L 11/20/19 08:41 ABG pO2 381 mmHg (83-108) H 11/20/19 08:41 ABG O2 Saturation 99.9 % (94-97) H 11/20/19 08:41 PT/INR, D-dimer PT 18.6 sec (9.0-12.0) H 11/20/19 01:18 INR 1.9 (<1.2) H 11/20/19 01:18 Abnormal lab findings: Abnormal Labs 11/18/19 11/18/19 11/18/19 10:04 10:04 10:04 WBC 29.9 H RBC 3.64 L Hgb Hct 37.2 L MCV 102.1 H MCH 36.3 H RDW Plt Count Neutrophils # 27.0 H Neutrophils # (Manual) Monocytes # 1.1 H Macrocytosis PT 20.6 H INR 2.1 H APTT 38.2 H ABG pH ABG pCO2 ABG pO2 ABG HCO3 ABG Total CO2 ABG O2 Saturation Sodium 125 L Potassium 2.8 L Chloride 89 L Carbon Dioxide 19 L BUN 82 H Creatinine 4.24 H Glucose 133 H POC Glucose (mg/dL) Plasma Lactic Acid Joselo Calcium Phosphorus Magnesium Total Bilirubin 40.3 H* GGT 226 H AST 304 H ALT 202 H Alkaline Phosphatase 249 H Ammonia Lactate Dehydrogenase 742 H Total Protein Albumin 3.0 L Lipase 481 H Urine Protein Urine Bilirubin Amorphous Sediment Urine Bacteria Urine Mucus Crossmatch 11/18/19 11/18/19 11/18/19 10:04 17:15 17:20 WBC RBC Hgb Hct MCV MCH RDW Plt Count Neutrophils # Neutrophils # (Manual) Monocytes # Macrocytosis PT INR APTT ABG pH ABG pCO2 ABG pO2 ABG HCO3 ABG Total CO2 ABG O2 Saturation Sodium Potassium Chloride Carbon Dioxide BUN Creatinine Glucose POC Glucose (mg/dL) 127 H Plasma Lactic Acid Joselo Calcium Phosphorus Magnesium Total Bilirubin GGT AST ALT Alkaline Phosphatase Ammonia 79 H Lactate Dehydrogenase Total Protein Albumin Lipase Urine Protein Trace H Urine Bilirubin 4+ H Amorphous Sediment Rare H Urine Bacteria Occasional H Urine Mucus Rare H Crossmatch 11/18/19 11/18/19 11/18/19 19:47 19:47 20:06 WBC 31.0 H RBC 3.21 L Hgb 11.8 L Hct 33.1 L MCV 103.0 H MCH 36.7 H RDW Plt Count Neutrophils # Neutrophils # (Manual) Monocytes # Macrocytosis PT INR APTT ABG pH ABG pCO2 ABG pO2 ABG HCO3 ABG Total CO2 ABG O2 Saturation Sodium 125 L Potassium 3.0 L Chloride 88 L Carbon Dioxide 20 L BUN 87 H Creatinine 4.51 H Glucose 123 H POC Glucose (mg/dL) 135 H Plasma Lactic Acid Joselo Calcium Phosphorus 5.5 H Magnesium 3.0 H Total Bilirubin 41.2 H* GGT AST 292 H ALT 179 H Alkaline Phosphatase 234 H Ammonia Lactate Dehydrogenase Total Protein Albumin 2.9 L Lipase Urine Protein Urine Bilirubin Amorphous Sediment Urine Bacteria Urine Mucus Crossmatch 11/19/19 11/19/19 11/19/19 05:36 05:36 06:52 WBC 24.0 H RBC 3.07 L Hgb 11.0 L Hct 31.9 L MCV 104.0 H MCH 35.9 H RDW Plt Count 113 L Neutrophils # 21.9 H Neutrophils # (Manual) Monocytes # Macrocytosis PT INR APTT ABG pH ABG pCO2 ABG pO2 ABG HCO3 ABG Total CO2 ABG O2 Saturation Sodium 124 L Potassium 3.0 L Chloride 89 L Carbon Dioxide 21 L BUN 91 H Creatinine 5.03 H Glucose 123 H POC Glucose (mg/dL) 118 H Plasma Lactic Acid Joselo Calcium 8.1 L Phosphorus 5.2 H Magnesium 2.7 H Total Bilirubin 39.4 H* GGT AST 248 H ALT 173 H Alkaline Phosphatase 189 H Ammonia Lactate Dehydrogenase Total Protein 6.2 L Albumin 2.5 L Lipase Urine Protein Urine Bilirubin Amorphous Sediment Urine Bacteria Urine Mucus Crossmatch 11/19/19 11/19/19 11/19/19 10:44 11:31 17:15 WBC RBC Hgb Hct MCV MCH RDW Plt Count Neutrophils # Neutrophils # (Manual) Monocytes # Macrocytosis PT 19.7 H INR 2.0 H APTT ABG pH ABG pCO2 ABG pO2 ABG HCO3 ABG Total CO2 ABG O2 Saturation Sodium Potassium Chloride Carbon Dioxide BUN Creatinine Glucose POC Glucose (mg/dL) 110 H 146 H Plasma Lactic Acid Joselo Calcium Phosphorus Magnesium Total Bilirubin GGT AST ALT Alkaline Phosphatase Ammonia Lactate Dehydrogenase Total Protein Albumin Lipase Urine Protein Urine Bilirubin Amorphous Sediment Urine Bacteria Urine Mucus Crossmatch 11/19/19 11/20/19 11/20/19 20:01 01:08 01:18 WBC 27.3 H RBC 2.45 L Hgb 9.1 L D Hct 26.3 L MCV 107.5 H MCH 37.2 H RDW Plt Count 107 L Neutrophils # Neutrophils # (Manual) 25.90 H Monocytes # Macrocytosis PT INR APTT ABG pH ABG pCO2 ABG pO2 ABG HCO3 ABG Total CO2 ABG O2 Saturation Sodium Potassium Chloride Carbon Dioxide BUN Creatinine Glucose POC Glucose (mg/dL) 131 H 188 H Plasma Lactic Acid Joselo Calcium Phosphorus Magnesium Total Bilirubin GGT AST ALT Alkaline Phosphatase Ammonia Lactate Dehydrogenase Total Protein Albumin Lipase Urine Protein Urine Bilirubin Amorphous Sediment Urine Bacteria Urine Mucus Crossmatch 11/20/19 11/20/19 11/20/19 01:18 01:18 02:15 WBC RBC Hgb Hct MCV MCH RDW Plt Count Neutrophils # Neutrophils # (Manual) Monocytes # Macrocytosis PT 18.6 H INR 1.9 H APTT 41.7 H ABG pH ABG pCO2 ABG pO2 ABG HCO3 ABG Total CO2 ABG O2 Saturation Sodium 125 L Potassium Chloride 92 L Carbon Dioxide 13 L BUN 118 H* Creatinine 5.50 H Glucose 167 H POC Glucose (mg/dL) 157 H Plasma Lactic Acid Joselo Calcium 8.0 L Phosphorus Magnesium 2.6 H Total Bilirubin GGT AST ALT Alkaline Phosphatase Ammonia Lactate Dehydrogenase Total Protein Albumin Lipase Urine Protein Urine Bilirubin Amorphous Sediment Urine Bacteria Urine Mucus Crossmatch 11/20/19 11/20/19 11/20/19 02:17 05:12 08:41 WBC 27.5 H RBC 1.70 L Hgb 6.4 L* D Hct 18.5 L* MCV 108.6 H MCH 37.4 H RDW Plt Count 105 L Neutrophils # Neutrophils # (Manual) Monocytes # Macrocytosis Marked A PT INR APTT ABG pH 7.17 L* ABG pCO2 26 L ABG pO2 381 H ABG HCO3 9 L* ABG Total CO2 10 L ABG O2 Saturation 99.9 H Sodium Potassium Chloride Carbon Dioxide BUN Creatinine Glucose POC Glucose (mg/dL) Plasma Lactic Acid Joselo Calcium Phosphorus Magnesium Total Bilirubin GGT AST ALT Alkaline Phosphatase Ammonia Lactate Dehydrogenase Total Protein Albumin Lipase Urine Protein Urine Bilirubin Amorphous Sediment Urine Bacteria Urine Mucus Crossmatch See Detail 11/20/19 11/20/19 09:35 09:35 WBC 40.3 H RBC 2.18 L Hgb 7.4 L Hct 22.9 L MCV 104.7 H MCH RDW 15.8 H Plt Count 122 L Neutrophils # Neutrophils # (Manual) Monocytes # Macrocytosis PT INR APTT ABG pH ABG pCO2 ABG pO2 ABG HCO3 ABG Total CO2 ABG O2 Saturation Sodium Potassium Chloride Carbon Dioxide BUN Creatinine Glucose POC Glucose (mg/dL) Plasma Lactic Acid Joselo 8.6 H* Calcium Phosphorus Magnesium Total Bilirubin GGT AST ALT Alkaline Phosphatase Ammonia Lactate Dehydrogenase Total Protein Albumin Lipase Urine Protein Urine Bilirubin Amorphous Sediment Urine Bacteria Urine Mucus Crossmatch - Diagnostic Findings Chest x-ray: image reviewed Assessment and Plan Plan: 1 acute upper GI bleed. The patient had active bleeding from a esophageal varices in the distal esophagus just proximal to the GE junction and the patient underwent a band ligation with control of hemostasis. Currently on Sandostatin and the patient is being resuscitated with blood products and fluids. 2 shock, hypovolemic in nature secondary to above. Currently on IV fluids and blood products and pressors 3 liver cirrhosis, alcoholic in nature 4 acute alcoholic hepatitis 5 ascites 6 blood loss anemia secondary to upper GI bleed, received a total of 3 units of packed RBC and follow-up hemoglobin is pending 7 coagulopathy secondary liver cirrhosis 8 acute kidney injury and the patient is oliguric for now and the patient's creatinine is up to 5.5 9 severe metabolic acidosis, lactic acidosis secondary to above 10 leukocytosis, consider reactive versus infectious and the patient is currently on IV Rocephin as an empiric antibiotic coverage 11 hypochloremic hyponatremia secondary to above 12 diabetes mellitus on metformin Plan Keep the patient sedated with propofol Keep the vent support for now at the same vent setting of appetite is down to 50% and down to 40% and needed Triple-lumen catheter was established and the patient will have a CVP monitor Continue bicarb infusion Continue monitoring the hemoglobin and transfuse if hemoglobin is less than 7 Monitor coagulation profile Continue Sandostatin Norepinephrine infusion for blood pressure support IV Rocephin as an empiric antibiotic coverage Monitor lactic acid level Artery catheter was established IV Protonix Monitor liver function tests Nephrology consultation for possible dialysis today Condition is critical we'll continue to follow make further recommendations based on his progress. This induration was on a more than 30 minutes. Time with Patient: Greater than 30
--- NOTE | 2019-11-20 11:29 | P.PCN ---
Date of Procedure: 11/20/19 Preoperative Diagnosis: Acute upper GI bleeding Postoperative Diagnosis: Acute upper GI bleeding Procedure(s) Performed: Arterial line and triple lumen catheter insertion Anesthesia: local Surgeon: Laura Chong Estimated Blood Loss (ml): 0 Pathology: other Condition: stable Disposition: ICU Operative Findings: Indication: Hemodynamic monitoring/Intravenous access. A time-out was completed verifying correct patient, procedure, site, positioning, and implant(s) or special equipment if applicable. The patient was placed in a dependent position appropriate for central line placement based on the vein to be cannulated. The patients left shoulder was prepped and draped in sterile fashion. 1% Lidocaine was used to anesthetize the surrounding skin area. A triple lumen 9F Cordis catheter was introduced into the subclavian vein using Seldinger technique. The catheter was threaded smoothly over the guide wire and appropriate blood return was obtained. Each lumen of the catheter was evacuated of air and flushed with sterile saline. The catheter was then sutured in place to the skin and a sterile dressing applied. Perfusion to the extremity distal to the point of catheter insertion was checked and found to be adequate. The patient tolerated the procedure well and there were no complications. Indication: Hemodynamic monitoring. A time-out was completed verifying correct patient, procedure, site, positioning, and implant(s) or special equipment if applicable. Allens test was performed to ensure adequate perfusion. The patients right wrist was prepped and draped in sterile fashion. 1% Lidocaine was used to anesthetize the area. An 18G Arrow arterial line was introduced into the radial artery. The catheter was threaded over the guide wire and the needle was removed with appropriate pulsatile blood return. Blood loss was minimal. The catheter was then sutured in place to the skin and a sterile dressing applied. Perfusion to the extremity distal to the point of catheter insertion was checked and found to be adequate. The patient tolerated the procedure well and there were no complications.
--- NOTE | 2019-11-20 12:35 | P.GSCN ---
History of Present Illness History of present illness: 81-year-old gentleman, seen in the intensive care unit with history of acute chronic renal failure. Patient has history of liver disease and also patient has history of GI bleed from esophageal varices I was consulted for placement of a dialysis catheter On examination patient has been intubated chest chest few crackles first and second heart sound present Abdomen is soft nontender patient has a generalized jaundice Vascular examination femorals are palpable bilateral no ischemic changes noted to the lower extremity Plan is placement of the dialysis catheter risk and complication discussed Past Medical History Past Medical History: Diabetes Mellitus, Liver Disease Additional Past Medical History / Comment(s): Alcoholic liver cirrhosis, diabetes mellitus, osteoarthritis, alcoholism, possible Gilbert syndrome History of Any Multi-Drug Resistant Organisms: None Reported Past Surgical History: Adenoidectomy Past Psychological History: No Psychological Hx Reported Smoking Status: Never smoker Past Alcohol Use History: Abuse, Heavy Past Drug Use History: None Reported - Past Family History Mother Family Medical History: Cancer Father Family Medical History: Diabetes Mellitus Medications and Allergies Home Medications Medication Instructions Recorded Confirmed Type Cetirizine HCl [Zyrtec] 10 mg PO DAILY 11/18/19 11/18/19 History Ibuprofen [Advil] 400 mg PO Q6H PRN 11/18/19 11/18/19 History metFORMIN HCL [Glucophage] 500 mg PO BID 11/18/19 11/18/19 History Allergies Allergy/AdvReac Type Severity Reaction Status Date / Time No Known Allergies Allergy Verified 11/18/19 10:59 Surgical - Exam Vital Signs Temp Pulse Resp BP Pulse Ox 97.9 F 75 18 105/69 100 11/18/19 09:48 11/18/19 09:48 11/18/19 09:48 11/18/19 09:48 11/18/19 09:48 Results - Labs 11/20/19 09:35 11/20/19 01:18 Abnormal Lab Results - Last 24 Hours (Table) 11/19/19 11/19/19 11/20/19 Range/Units 17:15 20:01 01:08 WBC (3.8-10.6) k/uL RBC (4.30-5.90) m/uL Hgb (13.0-17.5) gm/dL Hct (39.0-53.0) % MCV (80.0-100.0) fL MCH (25.0-35.0) pg RDW (11.5-15.5) % Plt Count (150-450) k/uL Neutrophils # (Manual) (1.3-7.7) k/uL Macrocytosis PT (9.0-12.0) sec INR (<1.2) APTT (22.0-30.0) sec ABG pH (7.35-7.45) ABG pCO2 (35-45) mmHg ABG pO2 (83-108) mmHg ABG HCO3 (21-25) mmol/L ABG Total CO2 (19-24) mmol/L ABG O2 Saturation (94-97) % Sodium (137-145) mmol/L Chloride (98-107) mmol/L Carbon Dioxide (22-30) mmol/L BUN (9-20) mg/dL Creatinine (0.66-1.25) mg/dL Glucose (74-99) mg/dL POC Glucose (mg/dL) 146 H 131 H 188 H (75-99) mg/dL Plasma Lactic Acid Joselo (0.7-2.0) mmol/L Calcium (8.4-10.2) mg/dL Magnesium (1.6-2.3) mg/dL Crossmatch 11/20/19 11/20/19 11/20/19 Range/Units 01:18 01:18 01:18 WBC 27.3 H (3.8-10.6) k/uL RBC 2.45 L (4.30-5.90) m/uL Hgb 9.1 L D (13.0-17.5) gm/dL Hct 26.3 L (39.0-53.0) % MCV 107.5 H (80.0-100.0) fL MCH 37.2 H (25.0-35.0) pg RDW (11.5-15.5) % Plt Count 107 L (150-450) k/uL Neutrophils # (Manual) 25.90 H (1.3-7.7) k/uL Macrocytosis PT 18.6 H (9.0-12.0) sec INR 1.9 H (<1.2) APTT 41.7 H (22.0-30.0) sec ABG pH (7.35-7.45) ABG pCO2 (35-45) mmHg ABG pO2 (83-108) mmHg ABG HCO3 (21-25) mmol/L ABG Total CO2 (19-24) mmol/L ABG O2 Saturation (94-97) % Sodium 125 L (137-145) mmol/L Chloride 92 L (98-107) mmol/L Carbon Dioxide 13 L (22-30) mmol/L BUN 118 H* (9-20) mg/dL Creatinine 5.50 H (0.66-1.25) mg/dL Glucose 167 H (74-99) mg/dL POC Glucose (mg/dL) (75-99) mg/dL Plasma Lactic Acid Joselo (0.7-2.0) mmol/L Calcium 8.0 L (8.4-10.2) mg/dL Magnesium 2.6 H (1.6-2.3) mg/dL Crossmatch 11/20/19 11/20/19 11/20/19 Range/Units 02:15 02:17 05:12 WBC 27.5 H (3.8-10.6) k/uL RBC 1.70 L (4.30-5.90) m/uL Hgb 6.4 L* D (13.0-17.5) gm/dL Hct 18.5 L* (39.0-53.0) % MCV 108.6 H (80.0-100.0) fL MCH 37.4 H (25.0-35.0) pg RDW (11.5-15.5) % Plt Count 105 L (150-450) k/uL Neutrophils # (Manual) (1.3-7.7) k/uL Macrocytosis Marked A PT (9.0-12.0) sec INR (<1.2) APTT (22.0-30.0) sec ABG pH (7.35-7.45) ABG pCO2 (35-45) mmHg ABG pO2 (83-108) mmHg ABG HCO3 (21-25) mmol/L ABG Total CO2 (19-24) mmol/L ABG O2 Saturation (94-97) % Sodium (137-145) mmol/L Chloride (98-107) mmol/L Carbon Dioxide (22-30) mmol/L BUN (9-20) mg/dL Creatinine (0.66-1.25) mg/dL Glucose (74-99) mg/dL POC Glucose (mg/dL) 157 H (75-99) mg/dL Plasma Lactic Acid Joselo (0.7-2.0) mmol/L Calcium (8.4-10.2) mg/dL Magnesium (1.6-2.3) mg/dL Crossmatch See Detail 11/20/19 11/20/19 11/20/19 Range/Units 08:41 09:35 09:35 WBC 40.3 H (3.8-10.6) k/uL RBC 2.18 L (4.30-5.90) m/uL Hgb 7.4 L (13.0-17.5) gm/dL Hct 22.9 L (39.0-53.0) % MCV 104.7 H (80.0-100.0) fL MCH (25.0-35.0) pg RDW 15.8 H (11.5-15.5) % Plt Count 122 L (150-450) k/uL Neutrophils # (Manual) (1.3-7.7) k/uL Macrocytosis PT (9.0-12.0) sec INR (<1.2) APTT (22.0-30.0) sec ABG pH 7.17 L* (7.35-7.45) ABG pCO2 26 L (35-45) mmHg ABG pO2 381 H (83-108) mmHg ABG HCO3 9 L* (21-25) mmol/L ABG Total CO2 10 L (19-24) mmol/L ABG O2 Saturation 99.9 H (94-97) % Sodium (137-145) mmol/L Chloride (98-107) mmol/L Carbon Dioxide (22-30) mmol/L BUN (9-20) mg/dL Creatinine (0.66-1.25) mg/dL Glucose (74-99) mg/dL POC Glucose (mg/dL) (75-99) mg/dL Plasma Lactic Acid Joselo 8.6 H* (0.7-2.0) mmol/L Calcium (8.4-10.2) mg/dL Magnesium (1.6-2.3) mg/dL Crossmatch Diabetes panel 11/20/19 Range/Units 01:18 Sodium 125 L (137-145) mmol/L Potassium 4.1 (3.5-5.1) mmol/L Chloride 92 L (98-107) mmol/L Carbon Dioxide 13 L (22-30) mmol/L BUN 118 H* (9-20) mg/dL Creatinine 5.50 H (0.66-1.25) mg/dL Glucose 167 H (74-99) mg/dL Calcium 8.0 L (8.4-10.2) mg/dL Calcium panel 11/20/19 Range/Units 01:18 Calcium 8.0 L (8.4-10.2) mg/dL Pituitary panel 11/20/19 Range/Units 01:18 Sodium 125 L (137-145) mmol/L Potassium 4.1 (3.5-5.1) mmol/L Chloride 92 L (98-107) mmol/L Carbon Dioxide 13 L (22-30) mmol/L BUN 118 H* (9-20) mg/dL Creatinine 5.50 H (0.66-1.25) mg/dL Glucose 167 H (74-99) mg/dL Calcium 8.0 L (8.4-10.2) mg/dL Adrenal panel 11/20/19 Range/Units 01:18 Sodium 125 L (137-145) mmol/L Potassium 4.1 (3.5-5.1) mmol/L Chloride 92 L (98-107) mmol/L Carbon Dioxide 13 L (22-30) mmol/L BUN 118 H* (9-20) mg/dL Creatinine 5.50 H (0.66-1.25) mg/dL Glucose 167 H (74-99) mg/dL Calcium 8.0 L (8.4-10.2) mg/dL
[2019-11-20] MEDS ORDERED: MIDAZOLAM HCL 50 MG in SODIUM CHLORIDE 0.9% 40 ML IV SCH (12:45)
[2019-11-20] MEDS: PIPERACILLIN-TAZOBACTAM 3.375 GM in SODIUM CHLORIDE 0.9% 100 ML IVPB SCH ×2 (12:56→21:04)
[2019-11-20] MEDS ORDERED: SODIUM CHLORIDE 0.9% 150 ML with VASOPRESSIN 60 UNIT IV SCH ×2 (13:45)
[2019-11-20 14:41] LABS: Anisocytosis Slight; HCT 24.3 % (39.0-53.0); HGB 8.5 gm/dL (13.0-17.5); MCHC 34.7 g/dL (31.0-37.0); MCV 103.6 fL (80.0-100.0); Macrocytosis Moderate; Mean Platelet Volume 12.3; Platelet Count 172 k/uL (150-450); RBC 2.35 m/uL (4.30-5.90); RDW 16.7 % (11.5-15.5); WBC 43.6 k/uL (3.8-10.6)
[2019-11-20 15:25] LABS: ABG Base Excess -23.4 mmol/L; ABG Oxygen Saturation 98.5 % (94-97); ABG PO2 135 mmHg (83-108); ABG TCO2 6 mmol/L (19-24); Allen Test Performed? Yes
[2019-11-20 15:26] LABS: ABG PCO2 16 mmHg (35-45); ABG PH 7.15 (7.35-7.45)
[2019-11-20 15:27] LABS: ABG HCO3 6 mmol/L (21-25)
[2019-11-20 15:43] LABS: Anisocytosis Slight; HCT 26.9 % (39.0-53.0); HGB 9.1 gm/dL (13.0-17.5); Hypochromasia Slight; MCH 35.7 pg (25.0-35.0); MCHC 33.9 g/dL (31.0-37.0); MCV 105.1 fL (80.0-100.0); Macrocytosis Moderate; Mean Platelet Volume 11.3; Platelet Count 225 k/uL (150-450); RBC 2.55 m/uL (4.30-5.90); RDW 16.9 % (11.5-15.5); WBC 47.9 k/uL (3.8-10.6)
[2019-11-20] MEDS ORDERED: NOREPINEPHRINE 32 MG in SODIUM CHLORIDE 0.9% 218 ML IV SCH (16:00)
[2019-11-20] MEDS ORDERED: EPINEPHrine 4 MG in DEXTROSE 5% IN WATER 250 ML IV SCH ×2 (16:00)
[2019-11-20 16:01] LABS: Lymphocytes # (M) 7.19 k/uL (1.0-4.8); Monocytes # (M) 0.96 k/uL (0-1.0); Neutrophils # (M) 39.76 k/uL (1.3-7.7); Neutrophils % (M) 83 %; Nucleated Red Blood Cells 0 /100 WBC (0-0); Total Cells Counted 100
[2019-11-20 16:12] LABS: Albumin 2.2 g/dL (3.5-5.0); Magnesium 2.6 mg/dL (1.6-2.3); Potassium 5.2 mmol/L (3.5-5.1); Total Protein 5.1 g/dL (6.3-8.2)
[2019-11-20 16:22] LABS: Total Bilirubin 33.8 mg/dL (0.2-1.3)
--- NOTE | 2019-11-20 17:18 | PN ---
PROGRESS NOTE DATE OF SERVICE: 11/20/2019 Patient is a 44-year-old pleasant white male admitted to hospital with severe acute alcoholic hepatitis with alcoholic cirrhosis of the liver and acute kidney injury. He had significant hematemesis last night. He had an upper endoscopy done by the [facility] early this morning and was noted to have esophageal varices and variceal ligation was performed. The patient has been intubated on the Intensive Care Unit, completely sedated. As per the nursing staff, he has been hypertensive and tachycardic and received 2 units of PRBC and one unit of FFP this morning. NG tube is currently being . He remains sedated. VITAL SIGNS: Blood pressure 72/42, pulse rate 86, temperature 97.8. HEENT: Examination unremarkable. There was some fresh blood from his angle of the right mouth. CHEST: Clear to auscultation. HEART: Regular rate and rhythm. ABDOMEN: Soft. Bowel sounds are positive. EXTREMITIES: No pedal edema. NEURO: Alert and oriented x3. LABS: From today WBC 47.9, hemoglobin 9.1, platelets normal. INR 1.9. ABGS: pH is 7.15, pCO2 is 62, PO2 is 135, HCO3 is 6. BUN is 106, creatinine 6.78. AST is 470, ALT 193, T bilirubin 33.8, alkaline phosphatase 126. Hepatitis A, B, and C are negative. COVID-19 is negative. IMPRESSION: 1. Acute upper gastrointestinal bleed secondary to esophageal variceal bleeding, status post variceal ligation by Dr. Nichols this morning. 2. Severe alcoholic hepatitis with significantly increased bilirubin at 33.8 and elevated transaminases with AST more than ALT, all consistent with severe acute alcoholic hepatitis. 3. Underlying liver cirrhosis from alcoholic liver disease. 4. Elevated LFTs. 5. Acute kidney injury, Nephrology following the patient closely. 6. Severe leukocytosis, rule out spontaneous bacterial peritonitis. RECOMMENDATIONS: 1. Placed a NG tube. 2. Continue IV Protonix. 3. Continue IV Sandostatin drip. 4. CBC every 6 hours and transfuse as needed. 5. Continue with broad-spectrum antibiotics with Rocephin. 6. An extremely poor and guarded prognosis, was discussed with the family about his current clinical condition. Tried to call the family but was not available. 7. Will follow with you closely. Thank you for this consultation. MMODL / IJN: [id number] /
[2019-11-20 21:13] LABS: Chloride 96 mmol/L (98-107); Potassium 5.5 mmol/L (3.5-5.1); Sodium 131 mmol/L (137-145)
[2019-11-20 21:16] LABS: Carbon Dioxide <5 mmol/L (22-30)
[2019-11-20 23:37] VITALS: PULSE 76
[2019-11-21 00:04] VITALS: BP 93/59; RESP 24; TEMP 97.4
[2019-11-21] MEDS ORDERED: ARTIFICIAL TEARS-HYPROMELLOSE DROPS 15 ML BTL BOTH EYES PRN (01:36)
--- NOTE | 2019-11-22 14:37 | P.DS ---
Providers Date of admission: 11/18/19 10:57 Expected date of discharge: 11/22/19 Attending physician: Darcy Moyer MD Consults: 11/18/19 10:57 Consult Physician Stat Consulting Provider: Bin Nichols Consult Reason/Comments: Acute liver failure Do you want consulting provider notified?: Yes 11/18/19 10:59 Consult Physician Urgent Consulting Provider: Alexey Page Consult Reason/Comments: Acute renal failure Do you want consulting provider notified?: Yes 11/20/19 06:31 Consult Physician Stat Consulting Provider: Chico Christianson Consult Reason/Comments: icu Do you want consulting provider notified?: Already Contacted 11/20/19 09:09 Consult Physician Stat Consulting Provider: Ronen Chavez Consult Reason/Comments: dialysis catheter Do you want consulting provider notified?: Yes Primary care physician: Stated None Hospital Course: 44-year-old male presents emergency Department with complaints of jaundice, weakness. In addition he has been having generalized abdominal pain, distention and bloating. Symptoms ongoing for the past few weeks. He does admit that he was drinking at least a pint to 1/5 of alcohol daily for last 2 years. Last drink was 3 weeks ago. Patient states that he did not go through any withdrawal symptoms. No acetaminophen use. He states that years ago he was told he may have Gilbert's disease based on his "gallbladder tests". He states that his liver enzymes were elevated at that time. Patient denies any chest pain or shortness of breath. Patient denies any fevers or chills patient offers no other associated complaints. Laboratory evaluation in the emergency department revealed WBC count 30,000, INR was 2.1, sodium 125, potassium 2.8, bicarbonate 19, BUN 82, creatinine 4.2, AST 304, AST 202, ammonia 79. Bili was around 40. Patient was admitted for further evaluation by GI and further diagnostic studies. Liver U/S showed nodular contour, no biliary obstruction found. Findings consistent with cirrhosis. He was diagnosed with acute alcohol induced hepatitis, acute renal failure sec to ATN vs. likely hepatorenal syndrome. Urine Na was low at 10 consistent with hepatorenal. He was seen by nephrology, who ordered renal U/s which did not show hydronephrosis. Dialysis was planned due to absent urine output and patient did have a dialysis cath inserted but was not performed. He was treated conservatively for the acute hepatitis. Steroids were started later in the hospitalization by GI. He was hypotensive with sbp down to the 70s, was treated with IV fluids as well as midodrine. On 11/19 morning he had severe hematemesis with more 2000cc of blood. GI notified, patient was started on pressors and was transferred to the ICU. Central line and A line were placed. He was given blood products including PRBCs and FFP. He was also started on PPI IV and octreotide gtts. He was also treated with DDAVP by nephrology. His dire condition was discussed with in details by myself and valet runner. EGD was done on the morning of 11/19, found esophageal varices that were banded, after the procedure he was kept of mechanical ventilation. Despite all above interventions he failed to improve, renal and liver functions continued to worsen. His bp continued to decline and he . Time for discharge 35 min Patient Condition at Discharge: Serious Plan - Discharge Summary Discharge Rx Participant: Yes New Discharge Prescriptions: No Action metFORMIN HCL [Glucophage] 500 mg PO BID Ibuprofen [Advil] 400 mg PO Q6H PRN PRN Reason: Pain Cetirizine HCl [Zyrtec] 10 mg PO DAILY Discharge Medication List Cetirizine HCl [Zyrtec] 10 mg PO DAILY 11/18/19 [History] Ibuprofen [Advil] 400 mg PO Q6H PRN 11/18/19 [History] metFORMIN HCL [Glucophage] 500 mg PO BID 11/18/19 [History] Follow up Appointment(s)/Referral(s): None,Stated [Primary Care Provider] - 1-2 days Discharge Disposition: - Preliminary Cause of Preliminary Cause of : LIver failure
--- NOTE | 2019-11-23 10:00 | CDI ---
Documentation Clarification Form Date: 11/23/19 From: Iris Crane CCS Phone: If you have a question about this query, please contact Sue Sahni, A And P Mechanic at [phone] between 8am and 5pm. Admit Date: 11/18/19 Discharge Date:11/21/19 Patient Name: Alberto Friend Visit Number: [id number] ATTENTION: The Clinical Documentation Specialists (CDI) and [facility] Coding Staff appreciate your assistance in clarifying documentation. Please respond to the clarification below the line at the bottom and electronically sign. The CDI & [facility] Coding staff will review the response and follow-up if needed. Please note: Queries are made part of the Legal Health Record. If you have any questions, please contact the author of this message via ITS. Dear Dr. Moyer, The patient presented with alcoholic cirrhosis, liver and kidney failure. Consult 11/19 documents: On a mechanical ventilator, the patient is currently on assist control mode at the rate of 24 with a tidal volume of 500 and FiO2 of 20% with a PEEP of 5 and a bl ood gas showed a pH of 7.17 with a pCO2 of 26 and pO2 of 381 and for that reason the FiO2 was found to 50%. History/Risk Factors: Hepatic failure, [place], Alcoholic Cirrhosis w/ bleeding esoph varices, Hypovolemic shock, ABLA Clinical Indicators: ABG pCO2 26, 16- P02 381, 135- pH 7.17, 7.15- HCO3 9, 9 (Arterial line 11/19) Other Clinical Indicators: Intubated on vent 11/19 Treatment: Vent/ Vasopressors Consults: Arlette In your professional opinion, can you please clarify the diagnosis if any for the clinical indicators and treatment above? Acute hypoxic respiratory failure Acute hypercapnic respiratory failure Respiratory arrest Respiratory distress Other, please specify Unable to determine Acute hypoxic respiratory failure MTDD
--- NOTE | 2019-12-08 08:01 | CDI ---
Documentation Clarification Form Date: 12/08/19 From: Iris Crane CCS Phone: If you have a question about this query, please contact Sue Sahni, Program Director/Air Personality at [phone] between 8am and 5pm. Admit Date: 11/18/19 Discharge Date:11/21/19 Patient Name: Alberto Friend Visit Number: [id number] ATTENTION: The Clinical Documentation Specialists (CDI) and [facility] Coding Staff appreciate your assistance in clarifying documentation. Please respond to the clarification below the line at the bottom and electronically sign. The CDI & [facility] Coding staff will review the response and follow-up if needed. Please note: Queries are made part of the Legal Health Record. If you have any questions, please contact the author of this message via ITS. Dear Dr. Moyer, Consult dated 11/19 documents chronic renal failure. History/Risk Factors: [place], Alcoholic Cirrhosis, DM Clinical Indicators: Acute and chronic renal disease BUN: 82, 87, 91 Creatinine: 4.24, 4.51, 5.03 GFR: 19, 17, 15 Treatment: Plan is placement of the dialysis catheter risk and complication discussed Consults: Scott In order to capture the severity of condition, please clarify the stage of the CKD, if known: CKD Stage 1 (GFR > 90) CKD Stage 2 (GFR 60-89) CKD Stage 3 (GFR 30-59) CKD Stage 4 (GFR 15-29) CKD Stage 5 (GFR <15) ESRD Other, please specify Unable to determine No CKD was present, only [place] MTDD
== END 2019-11-21 02:54 | disposition expired | DRG 432 ==
LOC: EC 09:46 → 5NMEDONC 10:57 → 2SICU 11-20 01:49
PROVIDERS: ADMIT Internal Medicine; ATTEND Internal Medicine
PROC: 5A1935Z Respiratory Ventilation, Less than 24 Consecutive Hours (ICD-10-PCS; 2019-11-20)
PROC: 30233K1 Transfusion of Nonautologous Frozen Plasma into Peripheral Vein, Percutaneous Approach (ICD-10-PCS; 2019-11-20)
PROC: 30233N1 Transfusion of Nonautologous Red Blood Cells into Peripheral Vein, Percutaneous Approach (ICD-10-PCS; 2019-11-20)
PROC: 0D9670Z Drainage of Stomach with Drainage Device, Via Natural or Artificial Opening (ICD-10-PCS; 2019-11-20)
PROC: 5A1D70Z Performance of Urinary Filtration, Intermittent, Less than 6 Hours Per Day (ICD-10-PCS; 2019-11-20)
PROC: 3E033XZ Introduction of Vasopressor into Peripheral Vein, Percutaneous Approach (ICD-10-PCS; 2019-11-20)
PROC: 06L38CZ Occlusion of Esophageal Vein with Extraluminal Device, Via Natural or Artificial Opening Endoscopic (ICD-10-PCS; 2019-11-20)
PROC: 03HY32Z Insertion of Monitoring Device into Upper Artery, Percutaneous Approach (ICD-10-PCS; 2019-11-20)
PROC: 4A133B1 Monitoring of Arterial Pressure, Peripheral, Percutaneous Approach (ICD-10-PCS; 2019-11-20)
PROC: 4A133J1 Monitoring of Arterial Pulse, Peripheral, Percutaneous Approach (ICD-10-PCS; 2019-11-20)
PROC: 02HV33Z Insertion of Infusion Device into Superior Vena Cava, Percutaneous Approach (ICD-10-PCS; 2019-11-20)
PROC: 0BH17EZ Insertion of Endotracheal Airway into Trachea, Via Natural or Artificial Opening (ICD-10-PCS; principal; 2019-11-20 06:30)
DX: K70.31 Alcoholic cirrhosis of liver with ascites (principal); N17.0 Acute kidney failure with tubular necrosis; J96.01 Acute respiratory failure with hypoxia; K76.7 Hepatorenal syndrome; G93.41 Metabolic encephalopathy; I85.11 Secondary esophageal varices with bleeding; K65.2 Spontaneous bacterial peritonitis; E87.2 Acidosis; D68.9 Coagulation defect, unspecified; E87.1 Hypo-osmolality and hyponatremia; D62 Acute posthemorrhagic anemia; Z11.59 Encounter for screening for other viral diseases; K70.40 Alcoholic hepatic failure without coma; R57.1 Hypovolemic shock; Z66 Do not resuscitate; K70.11 Alcoholic hepatitis with ascites; E87.8 Other disorders of electrolyte and fluid balance, not elsewhere classified; E11.9 Type 2 diabetes mellitus without complications; F10.20 Alcohol dependence, uncomplicated; E87.6 Hypokalemia; R40.2362 Coma scale, best motor response, obeys commands, at arrival to emergency department; R40.2142 Coma scale, eyes open, spontaneous, at arrival to emergency department; R40.2252 Coma scale, best verbal response, oriented, at arrival to emergency department; G89.29 Other chronic pain; M54.9 Dorsalgia, unspecified; E86.0 Dehydration; M19.90 Unspecified osteoarthritis, unspecified site; D72.829 Elevated white blood cell count, unspecified; R00.0 Tachycardia, unspecified; Y90.0 Blood alcohol level of less than 20 mg/100 ml; Z79.84 Long term (current) use of oral hypoglycemic drugs; Z79.899 Other long term (current) drug therapy; Z98.890 Other specified postprocedural states; Z83.3 Family history of diabetes mellitus; Z80.9 Family history of malignant neoplasm, unspecified
CPT/HCPCS: 36415; 43244; 71045; 76705; 76770; 80048; 80051; 80053; 80074; 80320; 81001; 82140; 82150; 82805; 82977; 83605; 83615; 83690; 83735; 83930; 83935; 84100; 84300; 85025; 85027; 85610; 85730; 86850; 86900; 86901; 86920; 87635; 90935; 94002; 94003; 99285